=== PATIENT | female | born 1935 | race Caucasian/White ===

== ENCOUNTER → 2016-08-21 | Outpatient (CLI) | payer MEDICARE, OTHER ==
[2016-08-21 09:26] LABS: HEMATOCRIT 42.1 % (36.0-47.0); HGB HCT DIFFERENCE -0.1; MEAN CORPUSCULAR HEMOGLOBIN 32.9 pg (27.0-33.4); MEAN CORPUSCULAR HGB CONC 33.3 g/dL (32.0-36.0); MEAN CORPUSCULAR VOLUME 99 fl (80-97); RED BLOOD COUNT 4.25 10^6/uL (3.72-5.28); RED CELL DISTRIBUTION WIDTH 15.4 % (11.5-14.0); WHITE BLOOD COUNT 11.3 10^3/uL (4.0-10.5)
[2016-08-21 09:33] LABS: APPEARANCE,URINE SLIGHTLY-CLOUDY; BILIRUBIN,URINE NEGATIVE (NEGATIVE); GLUCOSE, URINE NEGATIVE (NEGATIVE); KETONES,URINE NEGATIVE (NEGATIVE); LEUKOCYTE ESTERASE,URINE SMALL (NEGATIVE); NITRITE,URINE NEGATIVE (NEGATIVE); PROTEIN,URINE NEGATIVE (NEGATIVE); URINE SPECIFIC GRAVITY 1.012; UROBILINOGEN,URINE NEGATIVE mg/dL (<2.0)
[2016-08-21 09:52] LABS: ANION GAP 13 (5-19); BLOOD UREA NITROGEN 25 mg/dL (7-20); CALCIUM 9.8 mg/dL (8.4-10.2); CARBON DIOXIDE 23 mmol/L (22-30); CHLORIDE 111 mmol/L (98-107); CREATININE RESULT 1.34 mg/dL (0.52-1.25); GLUCOSE 90 mg/dL (75-110); POTASSIUM 3.7 mmol/L (3.6-5.0); SODIUM 147.4 mmol/L (137-145)
== END ==
LOC: OD 08:20
PROVIDERS: ATTEND Internal Medicine Nephrology
DX: I12.9 Hypertensive chronic kidney disease with stage 1 through stage 4 chronic kidney disease, or unspecified chronic kidney disease (principal); N18.3 Chronic kidney disease, stage 3 (moderate); D64.9 Anemia, unspecified
CPT/HCPCS: 36415; 80048; 81001; 82728; 83540; 83550; 85027

== ENCOUNTER → 2017-02-26 | Outpatient (CLI) | payer MEDICARE, OTHER ==
[2017-02-26 08:06] LABS: HEMOGLOBIN 13.8 g/dL (12.0-15.5); HGB HCT DIFFERENCE 1.4; MEAN CORPUSCULAR HEMOGLOBIN 34.7 pg (27.0-33.4); MEAN CORPUSCULAR HGB CONC 34.5 g/dL (32.0-36.0); MEAN CORPUSCULAR VOLUME 101 fl (80-97); RED BLOOD COUNT 3.98 10^6/uL (3.72-5.28); WHITE BLOOD COUNT 10.7 10^3/uL (4.0-10.5)
[2017-02-26 08:30] LABS: ANION GAP 9 (5-19); BLOOD UREA NITROGEN 22 mg/dL (7-20); CALCIUM 9.7 mg/dL (8.4-10.2); CARBON DIOXIDE 24 mmol/L (22-30); CHLORIDE 113 mmol/L (98-107); CREATININE RESULT 1.32 mg/dL (0.52-1.25); GLUCOSE 101 mg/dL (75-110); POTASSIUM 3.9 mmol/L (3.6-5.0); SODIUM 146.2 mmol/L (137-145)
[2017-02-26 09:15] LABS: APPEARANCE,URINE CLEAR; BILIRUBIN,URINE NEGATIVE (NEGATIVE); GLUCOSE, URINE NEGATIVE (NEGATIVE); KETONES,URINE NEGATIVE (NEGATIVE); LEUKOCYTE ESTERASE,URINE MODERATE (NEGATIVE); NITRITE,URINE NEGATIVE (NEGATIVE); PROTEIN,URINE NEGATIVE (NEGATIVE); URINE SPECIFIC GRAVITY 1.013; UROBILINOGEN,URINE NEGATIVE mg/dL (<2.0)
== END ==
LOC: OD 07:07
PROVIDERS: ATTEND Internal Medicine Nephrology
DX: I12.9 Hypertensive chronic kidney disease with stage 1 through stage 4 chronic kidney disease, or unspecified chronic kidney disease (principal); N18.3 Chronic kidney disease, stage 3 (moderate); E87.1 Hypo-osmolality and hyponatremia
CPT/HCPCS: 36415; 80048; 81001; 85027

== ENCOUNTER → 2017-06-06 | Outpatient (CLI) | payer MEDICARE, OTHER ==
[2017-06-06 16:42] LABS: HEMATOCRIT 41.8 % (36.0-47.0); HEMOGLOBIN 13.8 g/dL (12.0-15.5); MEAN CORPUSCULAR HEMOGLOBIN 33.4 pg (27.0-33.4); MEAN CORPUSCULAR VOLUME 101 fl (80-97); PLATELET COUNT 236 10^3/uL (150-450); RED BLOOD COUNT 4.13 10^6/uL (3.72-5.28); RED CELL DISTRIBUTION WIDTH 14.4 % (11.5-14.0); WHITE BLOOD COUNT 11.9 10^3/uL (4.0-10.5)
[2017-06-06 16:58] LABS: APPEARANCE,URINE SLIGHTLY-CLOUDY; BILIRUBIN,URINE NEGATIVE (NEGATIVE); COLOR,URINE YELLOW; GLUCOSE, URINE NEGATIVE (NEGATIVE); KETONES,URINE NEGATIVE (NEGATIVE); LEUKOCYTE ESTERASE,URINE LARGE (NEGATIVE); NITRITE,URINE NEGATIVE (NEGATIVE); PROTEIN,URINE NEGATIVE (NEGATIVE); URINE SPECIFIC GRAVITY 1.009; UROBILINOGEN,URINE NEGATIVE mg/dL (<2.0)
[2017-06-06 17:04] LABS: ANION GAP 12 (5-19); BLOOD UREA NITROGEN 25 mg/dL (7-20); CALCIUM 10.1 mg/dL (8.4-10.2); CARBON DIOXIDE 24 mmol/L (22-30); CHLORIDE 110 mmol/L (98-107); GLUCOSE 106 mg/dL (75-110); POTASSIUM 4.4 mmol/L (3.6-5.0); SODIUM 146.3 mmol/L (137-145)
== END ==
LOC: OD 15:10
PROVIDERS: ATTEND Physician Assistant Medical
DX: I12.9 Hypertensive chronic kidney disease with stage 1 through stage 4 chronic kidney disease, or unspecified chronic kidney disease (principal); N18.3 Chronic kidney disease, stage 3 (moderate); E87.1 Hypo-osmolality and hyponatremia
CPT/HCPCS: 36415; 80048; 81001; 85027

== ENCOUNTER 2017-07-27 11:30 | Inpatient (IN) | payer MEDICARE, OTHER ==
[2017-07-27] MEDS ORDERED: AZITHROMYCIN INJ 500 MG VIAL IV ONE (11:53)
[2017-07-27] MEDS ORDERED: ALBUTEROL SULFATE 0.083% NEB 2.5 MG/3 ML AMPUL NEB ONE (11:53)
[2017-07-27 12:08] LABS: ABSOLUTE LYMPHOCYTES (AUTO) 1.9 10^3/uL (0.5-4.7); ABSOLUTE MONOCYTES (AUTO) 0.5 10^3/uL (0.1-1.4); ABSOLUTE NEUT (AUTO) 3.4 10^3/uL (1.7-8.2); BASOPHILS % (AUTO) 0.5 % (0-2); EOSINOPHILS % (AUTO) 0.4 % (0-6); HEMATOCRIT 45.2 % (36.0-47.0); LYMPHOCYTES % (AUTO) 32.6 % (13-45); MEAN CORPUSCULAR HEMOGLOBIN 33.4 pg (27.0-33.4); MEAN CORPUSCULAR HGB CONC 33.1 g/dL (32.0-36.0); MEAN CORPUSCULAR VOLUME 101 fl (80-97); PLATELET COUNT 174 10^3/uL (150-450); RED BLOOD COUNT 4.49 10^6/uL (3.72-5.28); SEGMENTED NEUTROPHILS % (AUTO) 57.5 % (42-78); TOTAL CELLS COUNTED % (AUTO) 100 %; WHITE BLOOD COUNT 5.9 10^3/uL (4.0-10.5)
[2017-07-27 12:09] LABS: VENOUS BLOOD HCO3 25.2 mmol/L (20-32); VENOUS BLOOD PH 7.39 (7.30-7.42)
--- NOTE | 2017-07-27 12:27 | RADIOLOGY REPORT (SQ) ---
EXAM DESCRIPTION: CHEST SINGLE VIEW portable COMPLETED DATE/TIME: 07/27/2017 12:11 pm REASON FOR STUDY: copd, fever, weakness COMPARISON: 01/22/2016 EXAM PARAMETERS: NUMBER OF VIEWS: One view. TECHNIQUE: Single frontal radiographic view of the chest acquired. Portable RADIATION DOSE: NA LIMITATIONS: Patient body habitus. FINDINGS: LUNGS AND PLEURA: No opacities, masses or pneumothorax. No pleural effusion. MEDIASTINUM AND HILAR STRUCTURES: No masses. Contour normal. HEART AND VASCULAR STRUCTURES: Heart normal in size. Normal vasculature. BONES: No acute findings. HARDWARE: None in the chest. OTHER: No other significant finding. IMPRESSION: NO ACUTE RADIOGRAPHIC FINDING IN THE CHEST. TECHNICAL DOCUMENTATION: JOB ID: [id number] [place]- All Rights Reserved Reading location - IP/workstation name: [email or web address]
[2017-07-27 12:30] LABS: ALANINE AMINOTRANSFERASE 81 U/L (9-52); ALBUMIN 3.6 g/dL (3.5-5.0); ALKALINE PHOSPHATASE 51 U/L (38-126); ANION GAP 10 (5-19); ASPARTATE AMINO TRANSFERASE 68 U/L (14-36); BILIRUBIN,DIRECT 0.4 mg/dL (0.0-0.4); BILIRUBIN,TOTAL 0.6 mg/dL (0.2-1.3); BLOOD UREA NITROGEN 22 mg/dL (7-20); CALCIUM 9.5 mg/dL (8.4-10.2); CARBON DIOXIDE 26 mmol/L (22-30); CHLORIDE 109 mmol/L (98-107); CREATINE KINASE 46 U/L (30-135); GLUCOSE 91 mg/dL (75-110); POTASSIUM 3.9 mmol/L (3.6-5.0); SODIUM 144.8 mmol/L (137-145); TOTAL PROTEIN 5.9 g/dL (6.3-8.2)
[2017-07-27 12:40] LABS: CREATINE KINASE MB 0.3 ng/mL (<4.55); TROPONIN I 0.03 ng/mL
[2017-07-27 13:46] LABS: APPEARANCE,URINE CLEAR; BILIRUBIN,URINE NEGATIVE (NEGATIVE); COLOR,URINE YELLOW; GLUCOSE, URINE NEGATIVE (NEGATIVE); KETONES,URINE NEGATIVE (NEGATIVE); LEUKOCYTE ESTERASE,URINE NEGATIVE (NEGATIVE); NITRITE,URINE NEGATIVE (NEGATIVE); PROTEIN,URINE NEGATIVE (NEGATIVE); URINE SPECIFIC GRAVITY 1.012; UROBILINOGEN,URINE NEGATIVE mg/dL (<2.0)
[2017-07-27] MEDS ORDERED: CEFTRIAXONE INJ 1000 MG VIAL IV ONE (14:35)
--- NOTE | 2017-07-27 14:43 | ER Document Report ---
ED Respiratory Problem - General Chief Complaint: Fever Stated Complaint: FEVER AND WEAKNESS Time Seen by Provider: 07/27/17 11:45 Mode of Arrival: Medic Information source: Parent Notes: Patient is an 81-year-old female, visually impaired, who presents to the ER today for cough 3 days, weakness, history of COPD. Patient was febrile on the ambulance at 100.5F, they did give her Tylenol. Patient has a history of 2 heart attacks but denies any chest pain. She is not on any blood thinners. She denies any burning with urination or abdominal pain. TRAVEL OUTSIDE OF THE [place] IN LAST 30 DAYS: No - Related Data Allergies/Adverse Reactions: codeine [Codeine] Allergy (Severe, Verified 09/03/15 12:20) rash simvastatin [From Zocor] Allergy (Severe, Verified 09/03/15 12:20) severe rash amoxicillin [Amoxicillin] Adverse Reaction (Severe, Verified 09/03/15 12:20) Diarrhea Past Medical History - General Information source: Patient - Social History Smoking Status: Unknown if Ever Smoked Family History: Reviewed & Not Pertinent - Past Medical History Cardiac Medical History: Reports: Hx Heart Attack - 05/2015, Hx Hypercholesterolemia, Hx Hypertension - MEDICATED Denies: Hx Coronary Artery Disease Pulmonary Medical History: Denies: Hx Asthma, Hx Bronchitis, Hx COPD, Hx Pneumonia, Hx Tuberculosis Neurological Medical History: Denies: Hx Cerebrovascular Accident, Hx Seizures Endocrine Medical History: Reports: Hx Hypothyroidism. 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 Denies: Hx Hysterectomy, Hx Mastectomy, Hx Open Heart Surgery, Hx Pacemaker - Immunizations Hx Diphtheria, Pertussis, Tetanus Vaccination: Yes Hx Pneumococcal Vaccination: 02/25/14 Review of Systems - Review of Systems Constitutional: See HPI EENT: No symptoms reported Cardiovascular: No symptoms reported Respiratory: See HPI Gastrointestinal: No symptoms reported Genitourinary: No symptoms reported Female Genitourinary: No symptoms reported Musculoskeletal: No symptoms reported Skin: No symptoms reported Hematologic/Lymphatic: No symptoms reported Neurological/Psychological: No symptoms reported Physical Exam - Notes Notes: PHYSICAL EXAMINATION: GENERAL: Mildly ill-appearing, but in no acute distress. HEAD: Atraumatic, normocephalic. EYES: Visually impaired, pupils equal round and reactive to light, extraocular movements intact, sclera anicteric, conjunctiva are normal. ENT: ear canals without erythema or foreign body, TMs pearly griffin with good bony landmarks, nares patent, oropharynx clear without exudates. Moist mucous membranes. NECK: Normal range of motion, supple without lymphadenopathy LUNGS: Rhonchi bilateral lower lung yepez, mild expiratory wheezing, no rales HEART: Regular rate and rhythm without murmurs ABDOMEN: Soft, no tenderness. No guarding, no rebound BACK: no vertebral tenderness, normal ROM GI/: no CVA tenderness EXTREMITIES: Normal range of motion, no pitting edema. No cyanosis. NEUROLOGICAL: Cranial nerves grossly intact. Normal sensory/motor exams. PSYCH: Normal mood, normal affect. SKIN: Warm, Dry, normal turgor, no rashes or lesions noted Course - Re-evaluation Re-evalutation: 07/27/17 16:35 Lab work is unremarkable today except for mildly elevated lactic acid, patient has a normal white blood cell count, creatinine and kidney function are at her baseline, chest x-ray reports no acute pathology. Urinalysis negative for any infection. Patient wanted to go home on antibiotics if that is possible, I was in there talking to daughter and patient about this whenever she became unresponsive and her blood pressure plummeted to 78/40 and she started radiating down to the 20s. Patient was found to be pulseless at this time, Dr. Weir did come into the room on my request, compressions were started, but after 3 compressions patient grabbed the nurses hand who is doing the compressions and stopped her. At this time CAT scan of the head was ordered, repeat troponin and VQ scan. VQ scan was ordered over CTA due to patient's creatinine as well as patient saying that she cannot have contrast due to history of a brain tumor and radiation in the . VQ scan reports some filling defects bilaterally and cannot rule out bilateral PEs. Patient started on Lovenox at this time. Dr. Ayoub, hospitalist agrees to admit patient at this time. She is still on 2 L of nasal cannula as she desats to 91% on room air. - Laboratory Result Diagrams: 07/27/17 11:14 07/27/17 11:14 Laboratory results interpreted by me: 07/27/17 07/27/17 07/27/17 11:14 11:14 11:51 MCV 101 H Chloride 109 H BUN 22 H Creatinine 1.74 H Est GFR ( Amer) 34 L Est GFR (Non-Af Amer) 28 L POC Glucose Lactic Acid 2.5 H AST 68 H ALT 81 H Total Protein 5.9 L 07/27/17 14:10 MCV Chloride BUN Creatinine Est GFR ( Amer) Est GFR (Non-Af Amer) POC Glucose 124 H Lactic Acid AST ALT Total Protein Discharge - Discharge Clinical Impression: Hypoxia Pulmonary emboli Qualifiers: Pulmonary embolism type: other Chronicity: acute Acute cor pulmonale presence: without acute cor pulmonale Qualified Code(s): I26.99 - Other pulmonary embolism without acute cor pulmonale Condition: Stable Disposition: ADMITTED INPATIENT Admitting Provider: Hospitalist - ze Unit Admitted: Telemetry Referrals: JANE LOPEZ MD [Primary Care Provider] - Follow up as needed
--- NOTE | 2017-07-27 15:21 | RADIOLOGY REPORT (SQ) ---
EXAM DESCRIPTION: CT HEAD WITHOUT COMPLETED DATE/TIME: 07/27/2017 3:02 pm REASON FOR STUDY: unresponsive COMPARISON: August 2015 TECHNIQUE: Axial images acquired through the brain without intravenous contrast. Images reviewed wi th bone, brain and subdural windows. Images stored on PACS. All CT scanners at this facility use dose modulation, iterative reconstruction, and/or weight based d osing when appropriate to reduce radiation dose to as low as reasonably achievable (ALARA). [facility]: Dose Right [facility]: CareDose [facility]: Dose Right [facility]: Teradose 4D [facility]: [email or web address] RADIATION DOSE: CT Rad equipment meets quality standard of care and radiation dose reduction techniq ues were employed. CTDIvol: 49.0 mGy. DLP: 783 mGy-cm.mGy. LIMITATIONS: None. FINDINGS: VENTRICLES: Prominent. CEREBRUM: No masses. No hemorrhage. No midline shift. Areas of low density in the white matter mos t likely due to chronic micro-vascular ischemic change. No evidence for acute infarction. CEREBELLUM: No masses. No hemorrhage. No alteration of density. No evidence for acute infarction. EXTRAAXIAL SPACES: Age-related involutional change. No fluid collections. No masses. ORBITS AND GLOBE: No intra- or extraconal masses. Normal contour of globe without masses. CALVARIUM: No fracture. PARANASAL SINUSES: No fluid or mucosal thickening. SOFT TISSUES: No mass or hematoma. OTHER: No other significant finding. IMPRESSION: CHRONIC CHANGES OF ATROPHY AND MICROVASCULAR ISCHEMIA. NO ACUTE PROCESS. EVIDENCE OF ACUTE STROKE: NO. TECHNICAL DOCUMENTATION: JOB ID: [id number] Quality ID # [id number]: Final reports with documentation of one or more dose reduction techniques (e.g., Au tomated exposure control, adjustment of the mA and/or kV according to patient size, use of iterative reconstruction technique) 2010 [employer]- All Rights Reserved Reading location - IP/workstation name: [email or web address]
--- NOTE | 2017-07-27 15:49 | RADIOLOGY REPORT (SQ) ---
EXAM DESCRIPTION: NM LUNG PERFUSION SCAN COMPLETED DATE/TIME: 07/27/2017 3:34 pm REASON FOR STUDY: unresponsive for a minute, sob COMPARISON: Chest x-ray dated 07/27/2017 RADIONUCLIDE AND DOSE: 4.96 millicuries TC-99m MAA The route of agent administration: Intravenous TECHNIQUE: Eight views of the lungs acquired following injection of MAA. LIMITATIONS: None. FINDINGS: PERFUSION: There appear to be bilateral posterior perfusion defects best seen in the later al and LPO and RPO projections which I cannot exclude as pulmonary embolic disease. CTA of the chest may be of value for further evaluation. OTHER: No other significant finding. IMPRESSION: There appear to be bilateral posterior perfusion defects as noted above which I cannot e xclude as pulmonary embolic disease. CTA of the chest may be of value for further evaluation TECHNICAL DOCUMENTATION: JOB ID: [id number] [employer]- All Rights Reserved Reading location - IP/workstation name: [email or web address]
[2017-07-27] MEDS ORDERED: ENOXAPARIN SODIUM INJ 80 MG/0.8 ML DISP.SYRIN SUBCUT SCH (16:30)
[2017-07-27] MEDS ORDERED: ONDANSETRON HCL INJ/PF 4 MG/2 ML SDV IV PRN (17:23)
--- NOTE | 2017-07-27 17:41 | PDOC H&P ---
History of Present Illness Admission Date/PCP: 07/27/17 17:26 JANE LOPEZ MD Patient complains of: cough and weakness * 4 days History of Present Illness: SAMEERA SAINZ is a 81 year old female Past Medical History Cardiac Medical History: Reports: Myocardial Infarction - 05/2015, Hyperlipidema , Hypertension - MEDICATED Denies: Coronary Artery Disease Pulmonary Medical History: Denies: Asthma, Bronchitis, Chronic Obstructive Pulmonary Disease (COPD), Pneumonia, Tuberculosis Neurological Medical History: Denies: Seizures Endocrine Medical History: Reports: Hypothyroidism Denies: Diabetes Mellitus Type 2 Malignancy Medical History: Reports: 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, resulting blindness GI Medical History: Denies: Diverticulitis, Hepatitis, Hiatal Hernia Musculoskeltal Medical History: Reports: Gout Comment Only: Arthritis - gout Psychiatric Medical History: Reports: Depression Hematology: Denies: Anemia, Sickle Cell Disease Past Surgical History Past Surgical History: Reports: Appendectomy, Cardiac Catheterization - stents x 2, Cholecystectomy, Orthopedic Surgery - carpal tunnel Denies: Amputation, Hysterectomy, Mastectomy, Pacemaker Social History Information Source: Patient Lives with: Spouse/Significant other Smoking Status: Never Smoker Frequency of Alcohol Use: None Hx Recreational Drug Use: Yes Drugs: None Hx Prescription Drug Abuse: No Family History Family History: Reviewed & Not Pertinent Parental Family History Reviewed: Yes - Mother with cancer Children Family History Reviewed: NA Sibling(s) Family History Reviewed.: NA Medication/Allergy Allergies/Adverse Reactions: codeine [Codeine] Allergy (Severe, Verified 09/03/15 12:20) rash simvastatin [From Zocor] Allergy (Severe, Verified 09/03/15 12:20) severe rash amoxicillin [Amoxicillin] Adverse Reaction (Severe, Verified 09/03/15 12:20) Diarrhea Review of Systems All systems: reviewed and no additional remarkable complaints except as stated Physical Exam General appearance: PRESENT: no acute distress, well-developed, well-nourished Head exam: PRESENT: normocephalic Mouth exam: PRESENT: moist Respiratory exam: PRESENT: decreased breath sounds, unlabored - On 2L NC Cardiovascular exam: PRESENT: RRR. ABSENT: tachycardia GI/Abdominal exam: PRESENT: soft. ABSENT: tenderness Extremities exam: PRESENT: +1 edema - bilateral Neurological exam: PRESENT: alert, awake, CN II-XII grossly intact Psychiatric exam: PRESENT: appropriate affect Results Laboratory Results: 07/27/17 07/27/17 07/27/17 11:14 11:14 11:51 MCV 101 H D-Dimer Chloride 109 H BUN 22 H Creatinine 1.74 H Est GFR ( Amer) 34 L Est GFR (Non-Af Amer) 28 L POC Glucose Lactic Acid 2.5 H AST 68 H ALT 81 H Total Protein 5.9 L 07/27/17 07/27/17 11:51 14:10 MCV D-Dimer 1.24 H Chloride BUN Creatinine Est GFR ( Amer) Est GFR (Non-Af Amer) POC Glucose 124 H Lactic Acid AST ALT Total Protein Troponin: 0.03, repeat 0.025 Repeat Lactate 1.2 Impressions: Chest X-Ray 07/27/17 11:45 IMPRESSION: NO ACUTE RADIOGRAPHIC FINDING IN THE CHEST. Head CT 07/27/17 14:14 IMPRESSION: CHRONIC CHANGES OF ATROPHY AND MICROVASCULAR ISCHEMIA. NO ACUTE PROCESS. EVIDENCE OF ACUTE STROKE: NO. Lung Scan-VQ NM 07/27/17 14:40 IMPRESSION: There appear to be bilateral posterior perfusion defects as noted above which I cannot exclude as pulmonary embolic disease. CTA of the chest may be of value for further evaluation Assessment & Plan - Diagnosis (2) Pulmonary emboli Qualifiers: Pulmonary embolism type: other Chronicity: acute Acute cor pulmonale presence: without acute cor pulmonale Qualified Code(s): I26.99 - Other pulmonary embolism without acute cor pulmonale Plan: Cough, new O2 requirement, intermediate V/Q scan, mildly elevated d. dimer, marginally elevated troponin are all consistent with submassive PE - Risk factors: bed rest * 4 days, no smoking/OCP/recent travel/cancer history/ previous history of VTE - Given CKD, unable to obtain CTA chest to definitively rule in PE - Will obtain b/l lower extremity dopplers to assess for DVT - Will obtain TTE to assess for right heart strain - If still unclear with diagnosis after this work up, discussed with patient risk/benefits of obtaining CTA chest - Will start patient of Heparin GTT, no bolus, given history of easy bruising - Pt is NOT a good Lovenox candidate given CrCl ~30 - Warfarin would be an option however pt has frequent falls and per discussion with daughters would have difficulty with INR checks - DOACs would be an option, would need to discuss with Dr. 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 Ambrocio - Cr 1.7 today, CTM (4) CAD (coronary artery disease) Is this a current diagnosis for this admission?: No Plan: Known CAD history, received stent 2 years ago. Was taken off Plavix 1 year ago due to easy bruisability - Will await med rec to re-start home medications - Time Time Spent: Greater than 70 Minutes Critical Time spent with patient: 15-24 minutes Anticipated discharge: Home with Homehealth Within: within 48 hours
[2017-07-27 18:21] LABS: INTERNATIONAL RATION (INR) 0.94; PROTHROMBIN TIME 13.2 SEC (11.4-15.4)
[2017-07-27 18:22] LABS: PARTIAL THROMBOPLASTIN TIME 25.3 SEC (23.5-35.8)
[2017-07-27 19:39] LABS: ABSOLUTE BASOPHILS # (AUTO) 0.1 10^3/uL (0.0-0.2); ABSOLUTE EOSINOPHILS # (AUTO) 0.1 10^3/uL (0.0-0.6); ABSOLUTE LYMPHOCYTES (AUTO) 2.3 10^3/uL (0.5-4.7); ABSOLUTE MONOCYTES (AUTO) 0.5 10^3/uL (0.1-1.4); ABSOLUTE NEUT (AUTO) 4.4 10^3/uL (1.7-8.2); BASOPHILS % (AUTO) 0.9 % (0-2); EOSINOPHILS % (AUTO) 0.7 % (0-6); HEMATOCRIT 39.8 % (36.0-47.0); HEMOGLOBIN 13.2 g/dL (12.0-15.5); LYMPHOCYTES % (AUTO) 31.4 % (13-45); MEAN CORPUSCULAR HEMOGLOBIN 33.4 pg (27.0-33.4); MEAN CORPUSCULAR VOLUME 101 fl (80-97); MONOCYTES % (AUTO) 6.6 % (3-13); PLATELET COUNT 113 10^3/uL (150-450); RED BLOOD COUNT 3.94 10^6/uL (3.72-5.28); RED CELL DISTRIBUTION WIDTH 14.2 % (11.5-14.0); SEGMENTED NEUTROPHILS % (AUTO) 60.4 % (42-78); TOTAL CELLS COUNTED % (AUTO) 100 %; WHITE BLOOD COUNT 7.3 10^3/uL (4.0-10.5)
[2017-07-27] MEDS: HEPARIN SODIUM,PORCINE/D5W 25,000 UNIT/250 ML RTUINJ IV PRN (20:28)
[2017-07-27] MEDS: IPRATROPIUM/ALBUTEROL 0.5-2.5 MG/3 ML AMPUL NEB SCH (21:00)
--- NOTE | 2017-07-27 21:53 | EKG REPORT ---
SEVERITY:- ABNORMAL ECG - SINUS RHYTHM RIGHT BUNDLE BRANCH BLOCK LATERAL INFARCT, OLD : Confirmed by: Steffen Saenz MD 27-Jul-2017 21:52:47
[2017-07-28 03:35] LABS: INTERNATIONAL RATION (INR) 1.01
[2017-07-28 03:40] LABS: ANION GAP 10 (5-19); BLOOD UREA NITROGEN 16 mg/dL (7-20); CALCIUM 8.7 mg/dL (8.4-10.2); CARBON DIOXIDE 24 mmol/L (22-30); CHLORIDE 112 mmol/L (98-107); GLUCOSE 98 mg/dL (75-110); SODIUM 145.9 mmol/L (137-145)
[2017-07-28] MEDS: IPRATROPIUM/ALBUTEROL 0.5-2.5 MG/3 ML AMPUL NEB SCH ×4 (08:24→20:57)
--- NOTE | 2017-07-28 09:20 | PDOC PROGRESS REPORT ---
Subjective Progress Note for:: 07/28/17 Subjective:: Patient seen sleeping this a.m. She denies any chest pain or any other new symptoms. Reason For Visit: ACUTE PULMNARY EMBOLISM,CKD Physical Exam Vital Signs: Temp Pulse Resp BP Pulse Ox 99.9 F 95 40 H 166/46 H 98 07/28/17 07:07 07/28/17 07:07 07/28/17 07:07 07/28/17 07:07 07/28/17 07:07 Intake & Output 07/27/17 07/28/17 07/29/17 06:59 06:59 06:59 Intake Total 97 Balance 97 Weight 73.9 kg General appearance: PRESENT: no acute distress, other - Sleeping but easily arousable Head exam: PRESENT: atraumatic Eye exam: PRESENT: periorbital swelling, other - Puffy eyes bilaterally with some erythema Mouth exam: PRESENT: neck supple Neck exam: ABSENT: carotid bruit, JVD, lymphadenopathy, thyromegaly Respiratory exam: PRESENT: clear to auscultation susan. ABSENT: rales, rhonchi, wheezes Pulses: PRESENT: normal dorsalis pedis pul GI/Abdominal exam: PRESENT: normal bowel sounds, soft. ABSENT: distended, guarding, mass, organolmegaly, rebound, tenderness Rectal exam: PRESENT: deferred Extremities exam: PRESENT: full ROM. ABSENT: calf tenderness, clubbing, pedal edema Neurological exam: PRESENT: oriented to person, oriented to place, oriented to time Results Laboratory Results: 07/27/17 19:23 07/28/17 03:15 07/27/17 07/28/17 19:23 03:15 WBC 7.3 RBC 3.94 Hgb 13.2 Hct 39.8 MCV 101 H MCH 33.4 MCHC 33.0 RDW 14.2 H Plt Count 113 L Seg Neutrophils % 60.4 Lymphocytes % 31.4 Monocytes % 6.6 Eosinophils % 0.7 Basophils % 0.9 Absolute Neutrophils 4.4 Absolute Lymphocytes 2.3 Absolute Monocytes 0.5 Absolute Eosinophils 0.1 Absolute Basophils 0.1 Sodium 145.9 H Potassium 4.0 Chloride 112 H Carbon Dioxide 24 Anion Gap 10 BUN 16 Creatinine 1.50 H Est GFR ( Amer) 40 L Est GFR (Non-Af Amer) 33 L Glucose 98 Calcium 8.7 Impressions: Chest X-Ray 07/27/17 11:45 IMPRESSION: NO ACUTE RADIOGRAPHIC FINDING IN THE CHEST. Head CT 07/27/17 14:14 IMPRESSION: CHRONIC CHANGES OF ATROPHY AND MICROVASCULAR ISCHEMIA. NO ACUTE PROCESS. EVIDENCE OF ACUTE STROKE: NO. Lung Scan-VQ NM 07/27/17 14:40 IMPRESSION: There appear to be bilateral posterior perfusion defects as noted above which I cannot exclude as pulmonary embolic disease. CTA of the chest may be of value for further evaluation Assessment & Plan - Diagnosis (1) Pulmonary emboli Qualifiers: Pulmonary embolism type: other Chronicity: acute Acute cor pulmonale presence: without acute cor pulmonale Qualified Code(s): I26.99 - Other pulmonary embolism without acute cor pulmonale Is this a current diagnosis for this admission?: Yes Plan: Patient currently on heparin IV. It appears VQ scan was indeterminate and due to a kidney function is CTAs is not feasible. Kidney function however has improved today and if he continues to improve I think we showed go ahead and order a CTA as there will be difficulties on sending this patient on anticoagulant long-term. It appears family says check an INR will be technically difficult and because of a kidney function will have to be careful with using the newer oral anticoagulants. We will will continue with heparin (2) Acute on chronic renal failure Qualifiers: Chronic kidney disease stage: stage 3 (moderate) Is this a current diagnosis for this admission?: Yes Plan: Kidney function has improved somewhat today. We will continue to monitor (3) Hypoxia Is this a current diagnosis for this admission?: Yes Plan: Acute hypoxemic respiratory failure secondary to possible PE will continue oxygen support. (4) CAD (coronary artery disease) Is this a current diagnosis for this admission?: No Plan: Stent placement about 2 years ago and appears patient had been on Plavix but had to be discontinued due to easy bruisability
[2017-07-28] MEDS ORDERED: ACETAMINOPHEN 325 MG TABLET ONE (12:25)
--- NOTE | 2017-07-28 14:12 | RADIOLOGY REPORT (SQ) ---
EXAM DESCRIPTION: VENOUS BILATERAL LOWER COMPLETED DATE/TIME: 07/28/2017 2:01 pm REASON FOR STUDY: sob COMPARISON: None. TECHNIQUE: Dynamic and static richey scale and color images acquired of both lower extremity venous sy stems. Selected spectral images acquired with additional compression and augmentation maneuvers. Imag es stored on PACS. LIMITATIONS: None. FINDINGS: RIGHT LEG COMMON FEMORAL AND FEMORAL: Normal phasicity, compression and augmentation. No visualized echogenic m aterial on richey scale. No defects on color images. POPLITEAL: Normal compression and augmentation. No visualized echogenic material on richey scale. No de fects on color images. CALF VESSELS: Normal compression and augmentation. No visualized echogenic material on richey scale. No defects on color image. GSV AND SSV: Normal compression. No visualized echogenic material on richey scale. No defects on color images. ANY DEEP VENOUS INSUFFICIENCY: Not evaluated. ANY EVIDENCE OF POPLITEAL CYST: No. OTHER: No other significant finding. LEFT LEG COMMON FEMORAL AND FEMORAL: Normal phasicity, compression and augmentation. No visualized echogenic m aterial on richey scale. No defects on color images. POPLITEAL: Normal compression and augmentation. No visualized echogenic material on richey scale. No de fects on color images. CALF VESSELS: Normal compression and augmentation. No visualized echogenic material on richey scale. No defects on color images. GSV AND SSV: Normal compression. No visualized echogenic material on richey scale. No defects on color images. ANY DEEP VENOUS INSUFFICIENCY: Not evaluated. ANY EVIDENCE POPLITEAL CYST: No. OTHER: No other significant finding. IMPRESSION: NO EVIDENCE DVT OR SVT IN EITHER LEG. TECHNICAL DOCUMENTATION: JOB ID: [id number] [employer]- All Rights Reserved Reading location - IP/workstation name: [email or web address]
--- NOTE | 2017-07-28 15:14 | XCELERA REPORT ---
[address] [address] Transthoracic Echocardiogram Report Name: SAMEERA SAINZ Age: 81 yrs Gender: Female : 1935 Patient Status: Inpatient Patient Location: [address] [place] [address] Study Date: 07/28/2017 12:41 PM Height: 65 in Weight: 162 lb BSA: 1.8 m2 Procedure: A complete two-dimensional transthoracic echocardiogram was performed (2D, M-mode, spectral and color flow Doppler). The study was technically difficult with many images being suboptimal in quality. Reason For Study: PE, unresponsive for a minute Ordering Physician: KARINA YAP PA-C Performed By: Claudia Rodriguez Interpretation Summary The left ventricular ejection fraction is normal. There is mild concentric left ventricular hypertrophy. Doppler measurements suggest pseudonormalized left ventricular relaxation, which is associated with grade II/IV or mild to moderate diastolic dysfunction The left ventricle is grossly normal size. Wall motion cannot be accurately commented on, but no definite regional wall motion abnormalities noted. The right ventricular systolic function is normal. The right atrium is normal in size The left atrial size is normal. There is a mild amount of mitral regurgitation There is no mitral valve stenosis. There is mild aortic stenosis There is a peak gradient of 40, mean 20 mm of Hg. There is a mild to moderate amount of aortic regurgitation There is a trace or physiologic amount of tricuspid regurgitation Tricuspid regurgitation jet envelope not well defined to measure RV systolic pressure accurately. The aortic root is not well visualized. The inferior vena cava was not well visualized There is no pericardial effusion. MMode/2D Measurements & Calculations RVDd: 2.8 cm LVIDd: 4.2 cm FS: 30.3 % Ao root diam: 3.0 cm IVSd: 1.2 cm LVIDs: 2.9 cm EDV(Teich): 78.4 ml LVPWd: 1.2 cm ESV(Teich): 32.8 ml Ao root area: 7.0 cm2 EF(Teich): 58.1 % LA dimension: 3.0 cm LVOT diam: 2.0 cm LVOT area: 3.0 cm2 Doppler Measurements & Calculations MV E max sheila: MV P1/2t max sheila: Ao V2 max: AI max sheila: 100.0 cm/sec 101.8 cm/sec 313.8 cm/sec 398.2 cm/sec MV A max sheila: MV P1/2t: 51.2 msec Ao max PG: AI max P.1 cm/sec MVA(P1/2t): 4.3 cm2 39.4 mmHg 63.4 mmHg MV E/A: 0.90 MV dec slope: Ao V2 mean: AI dec slope: 582.9 cm/sec2 199.5 cm/sec 439.5 cm/sec2 Ao mean PG: AI P1/2t: 19.4 mmHg 265.4 msec Ao V2 VTI: 47.1 cm JIN(I,D): 1.6 cm2 JIN(V,D): 1.7 cm2 LV V1 max PG: SV(LVOT): 74.7 ml PA V2 max: TR max sheila: 12.0 mmHg 111.1 cm/sec 225.9 cm/sec LV V1 mean PG: PA max PG: TR max P.1 mmHg 4.9 mmHg 20.4 mmHg LV V1 max: 173.5 cm/sec LV V1 mean: 123.6 cm/sec LV V1 VTI: 24.8 cm Left Ventricle The left ventricle is grossly normal size. There is mild concentric left ventricular hypertrophy. The left ventricular ejection fraction is normal. Doppler measurements suggest pseudonormalized left ventricular relaxation, which is associated with grade II/IV or mild to moderate diastolic dysfunction. Wall motion cannot be accurately commented on, but no definite regional wall motion abnormalities noted. Right Ventricle The right ventricle is grossly normal size. There is normal right ventricular wall thickness. The right ventricular systolic function is normal. Atria The right atrium is normal in size. The left atrial size is normal. Interarterial septum not well visualized and not well dopplered. Cannot comment on ASD/PFO presence. Mitral Valve There is mild mitral leaflet calcification. There is mild to moderate mitral annular calcification. There is no mitral valve stenosis. There is a mild amount of mitral regurgitation. Aortic Valve The aortic valve is moderately calcified. There is mild aortic stenosis. There is a peak gradient of 40, mean 20 mm of Hg. There is a mild to moderate amount of aortic regurgitation. Tricuspid Valve The tricuspid valve is not well visualized secondary to technical limitations. There is no tricuspid stenosis. There is a trace or physiologic amount of tricuspid regurgitation. Tricuspid regurgitation jet envelope not well defined to measure RV systolic pressure accurately. Pulmonic Valve The pulmonic valve is not well visualized. Great Vessels The aortic root is not well visualized. The inferior vena cava was not well visualized. Effusions There is no pericardial effusion. Incidental Findings No definite cardiac source of CVA/TIA noted on this particular trans- thoracic study. Consider EDWAR if clinically indicated. May consider mobile cardiac telemetry monitoring (MCT) for ruling out transient AFIB. : KARINA YAP PA-C > Blayne Mullen
[2017-07-28] MEDS: ACETAMINOPHEN 325 MG TABLET PO PRN (16:21)
[2017-07-28] MEDS: HEPARIN SODIUM,PORCINE/D5W 25,000 UNIT/250 ML RTUINJ IV PRN (18:21)
[2017-07-29 04:07] LABS: PROTHROMBIN TIME 13.9 SEC (11.4-15.4)
[2017-07-29 04:57] LABS: ANION GAP 13 (5-19); BLOOD UREA NITROGEN 13 mg/dL (7-20); CALCIUM 9.3 mg/dL (8.4-10.2); CARBON DIOXIDE 19 mmol/L (22-30); CHLORIDE 115 mmol/L (98-107); GLUCOSE 100 mg/dL (75-110); SODIUM 147.2 mmol/L (137-145)
[2017-07-29] MEDS ORDERED: 1/2 NORMAL SALINE 1,000 ML IV PRN (07:48)
[2017-07-29] MEDS: IPRATROPIUM/ALBUTEROL 0.5-2.5 MG/3 ML AMPUL NEB SCH ×4 (08:45→20:48)
[2017-07-29] MEDS: ACETAMINOPHEN 325 MG TABLET PO PRN ×2 (10:31→15:11)
--- NOTE | 2017-07-29 15:29 | PDOC PROGRESS REPORT ---
Subjective Progress Note for:: 07/29/17 Subjective:: Patient is somewhat lethargic She appears comfortable and in no respiratory distress She is awake Family states "she is not the same" family finds her tremulous And at times obtunded Reason For Visit: ACUTE PULMNARY EMBOLISM,CKD Physical Exam Vital Signs: Temp Pulse Resp BP Pulse Ox 99.3 F 101 H 36 H 132/37 H 94 07/29/17 12:00 07/29/17 12:00 07/29/17 12:00 07/29/17 12:00 07/29/17 12:00 Intake & Output 07/28/17 07/29/17 07/30/17 00:59 00:59 00:59 Intake Total 0 497 75 Balance 0 497 75 Weight 75.4 kg 73.9 kg 72.6 kg eneral appearance: PRESENT: no acute distress, other - Sleeping but easily arousable Head exam: PRESENT: atraumatic Eye exam: PRESENT: periorbital swelling, other -erythema of the sclera no drainage Mouth exam: PRESENT: neck supple Neck exam: ABSENT: carotid bruit, JVD, lymphadenopathy, thyromegaly Respiratory exam: PRESENT: clear to auscultation susan. ABSENT: rales, rhonchi, wheezes Pulses: PRESENT: normal dorsalis pedis pul GI/Abdominal exam: PRESENT: normal bowel sounds, soft. ABSENT: distended, guarding, mass, organolmegaly, rebound, tenderness Rectal exam: PRESENT: deferred Extremities exam: PRESENT: full ROM. ABSENT: calf tenderness, clubbing, pedal edema Neurological exam: PRESENT: oriented to person, oriented to place, oriented to time Results Results Laboratory Results: 07/27/17 19:23 07/29/17 03:43 07/29/17 03:43 Sodium 147.2 H Potassium 4.0 Chloride 115 H Carbon Dioxide 19 L Anion Gap 13 BUN 13 Creatinine 1.53 H Est GFR ( Amer) 39 L Est GFR (Non-Af Amer) 33 L Glucose 100 Calcium 9.3 Impressions: Chest X-Ray 07/27/17 11:45 IMPRESSION: NO ACUTE RADIOGRAPHIC FINDING IN THE CHEST. Head CT 07/27/17 14:14 IMPRESSION: CHRONIC CHANGES OF ATROPHY AND MICROVASCULAR ISCHEMIA. NO ACUTE PROCESS. EVIDENCE OF ACUTE STROKE: NO. Lung Scan-VQ NM 07/27/17 14:40 IMPRESSION: There appear to be bilateral posterior perfusion defects as noted above which I cannot exclude as pulmonary embolic disease. CTA of the chest may be of value for further evaluation Venous Doppler Study 07/28/17 00:00 IMPRESSION: NO EVIDENCE DVT OR SVT IN EITHER LEG. Assessment & Plan - Time Time Spent with patient: 1) Pulmonary emboli Qualifiers: Pulmonary embolism type: other Chronicity: acute Acute cor pulmonale presence: without acute cor pulmonale Qualified Code(s): I26.99 - Other pulmonary embolism without acute cor pulmonale Is this a current diagnosis for this admission?: Yes Plan: Patient currently on heparin IV. It appears VQ scan was indeterminate and due to a kidney function is CTAs is not feasible. Kidney function however has improved today and if he continues to improve I think we showed go ahead and order a CTA as there will be difficulties on sending this patient on anticoagulant long-term. It appears family says check an INR will be technically difficult and because of a kidney function will have to be careful with using the newer oral anticoagulants. We will will continue with heparin Patient likely will require treatment with Coumadin as her creatinine clearance is around 30 Continue heparin drip Continue hydration (2) Acute on chronic renal failure Qualifiers: Chronic kidney disease stage: stage 3 (moderate) Is this a current diagnosis for this admission?: Yes Plan: Kidney function has improved somewhat today. We will continue to monitor Continue hydration (3) Hypoxia Is this a current diagnosis for this admission?: Yes Plan: Acute hypoxemic respiratory failure secondary to possible PE will continue oxygen support. (4) CAD (coronary artery disease) Is this a current diagnosis for this admission?: No Plan: Stent placement about 2 years ago and appears patient had been on Plavix but had to be discontinued due to easy bruisability (5 metabolic encephalopathy) Patient is extremely lethargic Encephalopathy likely secondary to hypoxemia, renal failure and hypernatremia initial CT of the brain was unremarkable We will schedule the patient for an MRI of the brain tomorrow to exclude an acute CVA (6) history of adrenal insufficiency Patient is on hydrocortisone p.o. We will double the dose for stress (7) hypernatremia Change IV fluids to D5 and a half Time Spent with patient: 25-34 minutes
[2017-07-29] MEDS: DEXTROSE 5%-1/2 NORMAL SALINE 1,000 ML IV PRN (16:12)
[2017-07-29] MEDS: METOPROLOL SUCCINATE 50 MG TAB.SR.24H PO SCH (16:12)
[2017-07-29] MEDS ORDERED: METOPROLOL SUCCINATE 50 MG TAB.SR.24H PO SCH (17:00)
[2017-07-29] MEDS: NEO/POLYMYX B SULF/DEXAMETH OPH SUSP 5 ML OU SCH (17:35)
[2017-07-29] MEDS: HYDROCORTISONE 10 MG TABLET PO SCH (17:37)
[2017-07-29] MEDS: FAMOTIDINE 20 MG TABLET PO SCH (17:38)
[2017-07-29] MEDS: MINERAL OIL/PETROLATUM,WHITE OPH OINT 3.5 GM OD SCH (17:40)
[2017-07-29] MEDS: HYDROCORTISONE 1% CREAM 28.35 GM TP SCH (17:41)
[2017-07-29] MEDS ORDERED: HYDROCORTISONE TOP SCH (18:00)
[2017-07-29] MEDS ORDERED: HYDRALAZINE HCL 25 MG TABLET PO SCH (18:00)
[2017-07-29] MEDS ORDERED: (PENDING PHARMACY ID) (Ranitidine Hcl [Zantac 150 Mg Tablet] 150 MG) PO SCH (18:00)
[2017-07-30] MEDS: NEO/POLYMYX B SULF/DEXAMETH OPH SUSP 5 ML OU SCH ×3 (00:09→14:25)
[2017-07-30 00:52] LABS: INTERNATIONAL RATION (INR) 0.98; PROTHROMBIN TIME 13.7 SEC (11.4-15.4)
[2017-07-30] MEDS: LEVOTHYROXINE SODIUM 0.1 MG TABLET PO SCH (06:10)
[2017-07-30] MEDS: LEVOTHYROXINE SODIUM 0.025 MG TABLET PO SCH (06:10)
[2017-07-30] MEDS: DEXTROSE 5%-1/2 NORMAL SALINE 1,000 ML IV PRN (06:18)
[2017-07-30 06:40] LABS: HEMOGLOBIN 12.4 g/dL (12.0-15.5); MEAN CORPUSCULAR HEMOGLOBIN 33.1 pg (27.0-33.4); MEAN CORPUSCULAR HGB CONC 33.4 g/dL (32.0-36.0); MEAN CORPUSCULAR VOLUME 99 fl (80-97); PLATELET COUNT 171 10^3/uL (150-450); RED BLOOD COUNT 3.73 10^6/uL (3.72-5.28); RED CELL DISTRIBUTION WIDTH 14.1 % (11.5-14.0); WHITE BLOOD COUNT 5.7 10^3/uL (4.0-10.5)
[2017-07-30 06:50] LABS: ANION GAP 7 (5-19); BLOOD UREA NITROGEN 9 mg/dL (7-20); CALCIUM 8.4 mg/dL (8.4-10.2); CARBON DIOXIDE 23 mmol/L (22-30); CHLORIDE 112 mmol/L (98-107); GLUCOSE 109 mg/dL (75-110); POTASSIUM 4.3 mmol/L (3.6-5.0); SODIUM 141.6 mmol/L (137-145)
[2017-07-30] MEDS ORDERED: (PENDING PHARMACY ID) (Levothyroxine Sodium [Synthroid] 125 MCG) PO SCH (08:00)
[2017-07-30] MEDS: IPRATROPIUM/ALBUTEROL 0.5-2.5 MG/3 ML AMPUL NEB SCH ×4 (08:20→21:09)
[2017-07-30 08:45] LABS: APPEARANCE,URINE CLEAR; BILIRUBIN,URINE NEGATIVE (NEGATIVE); COLOR,URINE YELLOW; GLUCOSE, URINE NEGATIVE (NEGATIVE); KETONES,URINE NEGATIVE (NEGATIVE); LEUKOCYTE ESTERASE,URINE NEGATIVE (NEGATIVE); NITRITE,URINE NEGATIVE (NEGATIVE); PROTEIN,URINE NEGATIVE (NEGATIVE); URINE SPECIFIC GRAVITY 1.008; UROBILINOGEN,URINE NEGATIVE mg/dL (<2.0)
[2017-07-30] MEDS: FOLIC ACID/VITAMIN B COMP W-C CAPSULE PO SCH (09:24)
[2017-07-30] MEDS: ALLOPURINOL 100 MG TABLET PO SCH (09:24)
[2017-07-30] MEDS: CARBOXYMETHYLCELLULOSE SOD 0.5% 0.4 ML DROPERETTE OU SCH (09:25)
[2017-07-30] MEDS: MINERAL OIL/PETROLATUM,WHITE OPH OINT 3.5 GM OD SCH ×2 (09:25→17:40)
[2017-07-30] MEDS: HYDROCORTISONE 10 MG TABLET PO SCH ×2 (09:25→17:36)
[2017-07-30] MEDS: HYDROCORTISONE 1% CREAM 28.35 GM TP SCH ×2 (09:25→17:40)
[2017-07-30] MEDS ORDERED: GLY OU SCH (10:00)
[2017-07-30] MEDS ORDERED: CARBOXYMETHYL OU SCH (10:00)
[2017-07-30] MEDS ORDERED: POLY80 OU SCH (10:00)
[2017-07-30] MEDS ORDERED: [UNRECOGNIZED DRUG - OTHER] OU SCH (10:00)
--- NOTE | 2017-07-30 11:44 | RADIOLOGY REPORT (SQ) ---
EXAM DESCRIPTION: CTA CHEST COMPLETED DATE/TIME: 07/30/2017 11:17 am REASON FOR STUDY: PE COMPARISON: Chest x-ray dated 07/27/2017 and CTA of the chest dated August 2015 TECHNIQUE: CT scan of the chest performed using helical scanning technique with dynamic intravenous contrast injection. Images reviewed with lung, soft tissue and bone windows. Reconstructed coronal and sagittal MPR images reviewed. Additional 3 dimensional post-processing performed to develop Maximal Intensity Projection images (CT P). All images stored on PACS. All CT scanners at this facility use dose modulation, iterative reconstruction, and/or weight based d osing when appropriate to reduce radiation dose to as low as reasonably achievable (ALARA). [facility]: Dose Right [facility]: CareDose [facility]: Dose Right [facility]: Teradose 4D [facility]: [employer] CONTRAST TYPE AND DOSE: contrast/concentration: Isovue 370.00 mg/ml; Total Contrast Delivered: 63.0 ml; Total Saline Delivered: 108.0 ml Contrast bolus optimized for the pulmonary arteries. Not diagnostic for the aorta. RENAL FUNCTION: Creatinine 1.2 RADIATION DOSE: CT Rad equipment meets quality standard of care and radiation dose reduction techniq ues were employed. CTDIvol: 9.4 - 13.8 mGy. DLP: 482 mGy-cm. . LIMITATIONS: None. FINDINGS: LUNGS AND PLEURA: No masses, infiltrates, pneumothorax. No pleural effusions. There is s ome minimal pleural thickening in the lung bases with a few tiny pleural calcifications. AORTA AND GREAT VESSELS: No aneurysm. Contrast bolus not optimized for the aorta. HEART: No pericardial effusion. No significant coronary artery calcifications. PULMONARY ARTERIES: No emboli visualized in the main pulmonary arteries or the segmental branches. HILAR AND MEDIASTINAL STRUCTURES: No identified masses or abnormal nodes. HARDWARE: None in the chest. UPPER ABDOMEN: No significant findings. Limited exam. THYROID AND OTHER SOFT TISSUES: No masses. No adenopathy. BONES: No acute or significant finding. 3D MIPS: Confirm above findings. OTHER: No other significant finding. IMPRESSION: No acute consolidations or pleural effusions. No evidence for pulmonary embolic disease . Other findings as noted above COMMENT: Quality ID # [id number]: Final reports with documentation of one or more dose reduction techniques (e.g., Automated exposure control, adjustment of the mA and/or kV according to patient size, use of iterative reconstruction technique) TECHNICAL DOCUMENTATION: JOB ID: [id number] [employer]- All Rights Reserved Reading location - IP/workstation name: [email or web address]
[2017-07-30] MEDS: HEPARIN SODIUM,PORCINE/D5W 25,000 UNIT/250 ML RTUINJ IV PRN (14:16)
--- NOTE | 2017-07-30 16:22 | PDOC PROGRESS REPORT ---
Subjective Progress Note for:: 07/30/17 Subjective:: Patient is an 81-year-old admitted on 07/27/2017 with weakness and cough. She was initially started on anticoagulation with IV heparin for concern for PE. CTA chest done this morning negative for acute PE. Seen and examined this afternoon and her daughter present during lunchtime, patient was seen feeding myself. Per daughter, she is not herself and the tremor is all new. She had pituitary surgery and awaiting for confirmation and medical records before MRI brain. Reason For Visit: ACUTE PULMNARY EMBOLISM,CKD Physical Exam Vital Signs: Temp Pulse Resp BP Pulse Ox 98.7 F 81 16 136/46 H 100 07/30/17 11:34 07/30/17 11:34 07/30/17 11:34 07/30/17 11:34 07/30/17 11:34 Intake & Output 07/29/17 07/30/17 07/31/17 06:59 06:59 06:59 Intake Total 475 1864 Balance 475 1864 Weight 72.6 kg 73.2 kg General appearance: PRESENT: other - Frail elderly woman Head exam: PRESENT: atraumatic, normocephalic Eye exam: PRESENT: conjunctiva pink Mouth exam: PRESENT: moist, neck supple Respiratory exam: PRESENT: clear to auscultation susan. ABSENT: accessory muscle use Cardiovascular exam: PRESENT: RRR GI/Abdominal exam: PRESENT: normal bowel sounds, soft Rectal exam: PRESENT: deferred Neurological exam: PRESENT: alert, altered, awake, oriented to situation Psychiatric exam: PRESENT: appropriate affect Skin exam: PRESENT: dry, warm Results Laboratory Results: 07/30/17 06:11 07/30/17 06:11 07/30/17 07/30/17 07/30/17 06:11 06:11 07:45 WBC 5.7 RBC 3.73 Hgb 12.4 Hct 37.0 MCV 99 H MCH 33.1 MCHC 33.4 RDW 14.1 H Plt Count 171 Sodium 141.6 Potassium 4.3 Chloride 112 H Carbon Dioxide 23 Anion Gap 7 BUN 9 Creatinine 1.20 Est GFR ( Amer) 52 L Est GFR (Non-Af Amer) 43 L Glucose 109 Calcium 8.4 Magnesium 1.7 Urine Color YELLOW Urine Appearance CLEAR Urine pH 6.0 Ur Specific [place] 1.008 Urine Protein NEGATIVE Urine Glucose (UA) NEGATIVE Urine Ketones NEGATIVE Urine Blood NEGATIVE Urine Nitrite NEGATIVE Ur Leukocyte Esterase NEGATIVE Urine WBC (Auto) 1 Urine RBC (Auto) 1 Impressions: Chest X-Ray 07/27/17 11:45 IMPRESSION: NO ACUTE RADIOGRAPHIC FINDING IN THE CHEST. Head CT 07/27/17 14:14 IMPRESSION: CHRONIC CHANGES OF ATROPHY AND MICROVASCULAR ISCHEMIA. NO ACUTE PROCESS. EVIDENCE OF ACUTE STROKE: NO. Lung Scan-VQ NM 07/27/17 14:40 IMPRESSION: There appear to be bilateral posterior perfusion defects as noted above which I cannot exclude as pulmonary embolic disease. CTA of the chest may be of value for further evaluation Venous Doppler Study 07/28/17 00:00 IMPRESSION: NO EVIDENCE DVT OR SVT IN EITHER LEG. Chest/Abdomen CTA 07/30/17 00:00 IMPRESSION: No acute consolidations or pleural effusions. No evidence for pulmonary embolic disease. Other findings as noted above Assessment & Plan - Diagnosis (1) Acute on chronic renal failure Qualifiers: Chronic kidney disease stage: stage 3 (moderate) Is this a current diagnosis for this admission?: Yes Plan: Resolved (2) Acute metabolic encephalopathy Is this a current diagnosis for this admission?: Yes Plan: On presentation she did have a CT head without acute findings. She was awake during my round and seen feeding resolved. She answers some of my question appropriately. Per the daughter she is not back to herself and she is tremulous. MRI brain has been ordered. If unable to obtain we may need to repeat the CAT scan of the brain (3) Hypoxia Is this a current diagnosis for this admission?: Yes Plan: CTA chest negative for PE no evidence of infiltrate and no pleural effusions. May be due to deconditioning. Continue bronchodilator therapy Consult physical therapy (4) CAD (coronary artery disease) Is this a current diagnosis for this admission?: No Plan: Continue current management (5) Hypernatremia Is this a current diagnosis for this admission?: Yes Plan: Resolved (6) Physical deconditioning Is this a current diagnosis for this admission?: Yes Plan: Consult physical therapy (7) DVT prophylaxis Is this a current diagnosis for this admission?: Yes Plan: Start Lovenox
[2017-07-30] MEDS ORDERED: TOBRAMYCIN SULFATE/DEXAMETH OPH SUSP 2.5 ML OU SCH (16:30)
[2017-07-30] MEDS: METOPROLOL SUCCINATE 50 MG TAB.SR.24H PO SCH (17:29)
[2017-07-30] MEDS: FAMOTIDINE 20 MG TABLET PO SCH (17:36)
[2017-07-30] MEDS: TOBRAMYCIN SULFATE/DEXAMETH OPH SUSP 2.5 ML OU SCH (20:54)
--- NOTE | 2017-07-30 22:11 | RADIOLOGY REPORT (SQ) ---
EXAM DESCRIPTION: CT HEAD WITHOUT COMPLETED DATE/TIME: 07/30/2017 10:00 pm REASON FOR STUDY: ? CVA COMPARISON: 07/27/2017 TECHNIQUE: Axial images acquired through the brain without intravenous contrast. Images reviewed wi th bone, brain and subdural windows. Images stored on PACS. All CT scanners at this facility use dose modulation, iterative reconstruction, and/or weight based d osing when appropriate to reduce radiation dose to as low as reasonably achievable (ALARA). [facility]: Dose Right [facility]: CareDose [facility]: Dose Right [facility]: Teradose 4D [facility]: [employer] RADIATION DOSE: 64.6mGy. LIMITATIONS: Pain [facility] FINDINGS: VENTRICLES: Prominent ventricles secondary to involutional atrophy. CEREBRUM: No masses. No hemorrhage. No midline shift. No evidence for acute infarction. Few scatte red areas of low density in the white matter most likely chronic small vessel ischemic changes. CEREBELLUM: No masses. No hemorrhage. No alteration of density. No evidence for acute infarction. EXTRAAXIAL SPACES: No fluid collections. No masses. ORBITS AND GLOBE: No intra- or extraconal masses. Normal contour of globe without masses. CALVARIUM: No fracture. PARANASAL SINUSES: No fluid or mucosal thickening. SOFT TISSUES: No mass or hematoma. OTHER: No other significant finding. IMPRESSION: MILD CHRONIC MICROVASCULAR ISCHEMIA. NO ACUTE IMAGING FINDINGS IN THE BRAIN. EVIDENCE OF ACUTE STROKE: NO. COMMENT: Quality ID # [id number]: Final reports with documentation of one or more dose reduction techniques (e.g., Automated exposure control, adjustment of the mA and/or kV according to patient size, use of iterative reconstruction technique) TECHNICAL DOCUMENTATION: JOB ID: [id number] [employer]- All Rights Reserved Reading location - IP/workstation name: [email or web address]
[2017-07-31 00:42] LABS: INTERNATIONAL RATION (INR) 0.87; PROTHROMBIN TIME 12.5 SEC (11.4-15.4)
[2017-07-31] MEDS: LEVOTHYROXINE SODIUM 0.1 MG TABLET PO SCH (06:35)
[2017-07-31] MEDS: TOBRAMYCIN SULFATE/DEXAMETH OPH SUSP 2.5 ML OU SCH ×4 (06:35→17:21)
[2017-07-31] MEDS: LEVOTHYROXINE SODIUM 0.025 MG TABLET PO SCH (06:35)
[2017-07-31] MEDS: IPRATROPIUM/ALBUTEROL 0.5-2.5 MG/3 ML AMPUL NEB SCH ×4 (08:01→20:19)
[2017-07-31] MEDS: CARBOXYMETHYLCELLULOSE SOD 0.5% 0.4 ML DROPERETTE OU SCH (10:00)
[2017-07-31] MEDS: HYDROCORTISONE 10 MG TABLET PO SCH ×2 (10:55→17:19)
[2017-07-31] MEDS: FOLIC ACID/VITAMIN B COMP W-C CAPSULE PO SCH (10:55)
[2017-07-31] MEDS: ALLOPURINOL 100 MG TABLET PO SCH (10:55)
[2017-07-31] MEDS: MINERAL OIL/PETROLATUM,WHITE OPH OINT 3.5 GM OD SCH ×2 (10:57→17:21)
[2017-07-31] MEDS: HYDROCORTISONE 1% CREAM 28.35 GM TP SCH ×2 (10:59→17:20)
[2017-07-31] MEDS: BENZOCAINE/MENTHOL SORE THROAT LOZENGE BUCCAL PRN ×2 (13:22→17:20)
--- NOTE | 2017-07-31 16:03 | PDOC PROGRESS REPORT ---
Subjective Progress Note for:: 07/31/17 Subjective:: Patient is an 81-year-old admitted on 07/27/2017 with weakness and cough. She was initially started on anticoagulation with IV heparin for concern for PE. CTA chest done on 07/30/2017 negative for acute PE, heparin drip has been discontinued. She did have a repeat CAT scan of the brain yesterday negative for acute CVA. The daughter thinks that her tremor much improved. Patient reports doing better and reports sore throat. Reason For Visit: ACUTE PULMNARY EMBOLISM,CKD Physical Exam Vital Signs: Temp Pulse Resp BP Pulse Ox 98.1 F 83 18 133/43 H 99 07/31/17 12:00 07/31/17 12:50 07/31/17 12:50 07/31/17 12:00 07/31/17 12:00 Intake & Output 07/30/17 07/31/17 08/01/17 06:59 06:59 06:59 Intake Total 1864 3909 200 Balance 1864 3909 200 Weight 73.2 kg 74.1 kg General appearance: PRESENT: no acute distress, other - frail elderly woman Head exam: PRESENT: atraumatic, normocephalic Eye exam: PRESENT: conjunctiva pink, EOMI Mouth exam: PRESENT: dry mucosa Neck exam: PRESENT: full ROM Respiratory exam: PRESENT: clear to auscultation susan, unlabored. ABSENT: accessory muscle use Cardiovascular exam: PRESENT: RRR GI/Abdominal exam: PRESENT: normal bowel sounds, soft Rectal exam: PRESENT: deferred Extremities exam: PRESENT: full ROM Neurological exam: PRESENT: alert, oriented to person, oriented to time, oriented to situation Psychiatric exam: PRESENT: appropriate affect Results Laboratory Results: 07/30/17 06:11 07/30/17 06:11 07/30/17 07/31/17 16:20 11:10 Stool Occult Blood POSITIVE NEGATIVE Impressions: Chest X-Ray 07/27/17 11:45 IMPRESSION: NO ACUTE RADIOGRAPHIC FINDING IN THE CHEST. Lung Scan-VQ NM 07/27/17 14:40 IMPRESSION: There appear to be bilateral posterior perfusion defects as noted above which I cannot exclude as pulmonary embolic disease. CTA of the chest may be of value for further evaluation Venous Doppler Study 07/28/17 00:00 IMPRESSION: NO EVIDENCE DVT OR SVT IN EITHER LEG. Chest/Abdomen CTA 07/30/17 00:00 IMPRESSION: No acute consolidations or pleural effusions. No evidence for pulmonary embolic disease. Other findings as noted above Head CT 07/30/17 00:00 IMPRESSION: MILD CHRONIC MICROVASCULAR ISCHEMIA. NO ACUTE IMAGING FINDINGS IN THE BRAIN. EVIDENCE OF ACUTE STROKE: NO. Assessment & Plan - Diagnosis (1) Conjunctivitis Qualifiers: Acute conjunctivitis type: bacterial Laterality: bilateral Is this a current diagnosis for this admission?: Yes Plan: Continue tobramycin eye drops (2) Acute on chronic renal failure Qualifiers: Chronic kidney disease stage: stage 3 (moderate) Is this a current diagnosis for this admission?: Yes Plan: Resolved (3) Acute metabolic encephalopathy Is this a current diagnosis for this admission?: Yes Plan: She did have a repeat CAT scan of the brain yesterday negative for acute CVA. The daughter thinks that her tremor much improved. (4) Hypoxia Is this a current diagnosis for this admission?: Yes Plan: CTA chest negative for PE no evidence of infiltrate and no pleural effusions. May be due to deconditioning. Continue bronchodilator therapy Consulted physical therapy Plan to wean off O2 as tolerated (5) CAD (coronary artery disease) Is this a current diagnosis for this admission?: No Plan: Continue current management (6) Hypernatremia Is this a current diagnosis for this admission?: Yes Plan: Resolved (7) Physical deconditioning Is this a current diagnosis for this admission?: Yes Plan: Consulted physical therapy (8) DVT prophylaxis Is this a current diagnosis for this admission?: Yes Plan: SCD's
[2017-07-31] MEDS: METOPROLOL SUCCINATE 50 MG TAB.SR.24H PO SCH (17:19)
[2017-07-31] MEDS: FAMOTIDINE 20 MG TABLET PO SCH (17:20)
[2017-08-01 00:48] LABS: INTERNATIONAL RATION (INR) 0.86; PROTHROMBIN TIME 12.4 SEC (11.4-15.4)
[2017-08-01] MEDS: LEVOTHYROXINE SODIUM 0.1 MG TABLET PO SCH (06:19)
[2017-08-01] MEDS: LEVOTHYROXINE SODIUM 0.025 MG TABLET PO SCH (06:19)
[2017-08-01] MEDS: TOBRAMYCIN SULFATE/DEXAMETH OPH SUSP 2.5 ML OU SCH ×3 (06:20→12:55)
[2017-08-01 07:10] LABS: HEMATOCRIT 36.3 % (36.0-47.0); HEMOGLOBIN 12.3 g/dL (12.0-15.5); MEAN CORPUSCULAR HEMOGLOBIN 33.4 pg (27.0-33.4); MEAN CORPUSCULAR HGB CONC 33.8 g/dL (32.0-36.0); MEAN CORPUSCULAR VOLUME 99 fl (80-97); PLATELET COUNT 211 10^3/uL (150-450); RED BLOOD COUNT 3.67 10^6/uL (3.72-5.28); WHITE BLOOD COUNT 9.3 10^3/uL (4.0-10.5)
[2017-08-01] MEDS: FOLIC ACID/VITAMIN B COMP W-C CAPSULE PO SCH (08:38)
[2017-08-01] MEDS: ALLOPURINOL 100 MG TABLET PO SCH (08:38)
[2017-08-01] MEDS: HYDROCORTISONE 10 MG TABLET PO SCH (08:38)
[2017-08-01] MEDS: IPRATROPIUM/ALBUTEROL 0.5-2.5 MG/3 ML AMPUL NEB SCH ×2 (08:39→12:09)
[2017-08-01] MEDS: MINERAL OIL/PETROLATUM,WHITE OPH OINT 3.5 GM OD SCH (09:55)
[2017-08-01] MEDS: HYDROCORTISONE 1% CREAM 28.35 GM TP SCH (09:55)
[2017-08-01] MEDS: BENZOCAINE/MENTHOL SORE THROAT LOZENGE BUCCAL PRN (09:57)
[2017-08-01] MEDS: CARBOXYMETHYLCELLULOSE SOD 0.5% 0.4 ML DROPERETTE OU SCH (10:00)
--- NOTE | 2017-08-01 11:54 | PDOC DISCHARGE SUMMARY ---
General - Admit/Disc Date/PCP Admission Date/Primary Care Provider: 07/27/17 17:26 JANE LOPEZ MD Discharge Date: 08/01/17 - Discharge Diagnosis (1) Conjunctivitis Is this a current diagnosis for this admission?: Yes (2) Acute on chronic renal failure Is this a current diagnosis for this admission?: Yes (3) Acute metabolic encephalopathy Is this a current diagnosis for this admission?: Yes (4) Hypoxia Is this a current diagnosis for this admission?: Yes (5) CAD (coronary artery disease) Is this a current diagnosis for this admission?: No (6) Hypernatremia Is this a current diagnosis for this admission?: Yes (7) Physical deconditioning Is this a current diagnosis for this admission?: Yes (8) DVT prophylaxis Is this a current diagnosis for this admission?: Yes - Additional Information Resuscitation Status: Full Code Prescriptions: Tobramycin Sulfate/Dexameth [Tobradex Oph Drops 2.5 ml] 1 drop OU Q6 5 Days #1 bottle Home Medications: Allopurinol [Zyloprim 100 mg Tablet] 100 mg PO QAM 07/27/17 Aspirin [Adult Low Dose Aspirin EC] 81 mg PO QAM 07/27/17 Atorvastatin Calcium [Lipitor 80 mg Tablet] 80 mg PO QHS 07/27/17 B Complex W-C No.20/Folic Acid [Renal Caps Softgel] 1 mg PO QAM 07/27/17 Carboxymethyl/Gly/Poly80/Pf [Refresh Optive Advanced Drops] 4 drop OU DAILY 07/15 Furosemide [Lasix 20 mg Tablet] 20 mg PO QAM 07/27/17 Gabapentin [Neurontin] 600 mg PO QHS 07/27/17 Hydralazine HCl [Apresoline 25 mg Tablet] 25 mg PO BID 07/27/17 Hydrocortisone [Cortef 10 mg Tablet] 10 mg PO QPM 07/27/17 Hydrocortisone [Cortef 10 mg Tablet] 20 mg PO QAM 07/27/17 Hydrocortisone [Cortizone-10] 1 applic TOP BID 07/27/17 Levothyroxine Sodium [Synthroid] 125 mcg PO QAM 07/27/17 Hermilo/Polymyx B Sulf/Dexameth [Uopesk-Rfuae-Ccviqyie Eye Drop] 1 drop OU QID 07/27 Nitroglycerin [Nitrostat] 0.4 mg SL Q5MP PRN 07/27/17 Ranitidine HCl [Zantac 150 mg Tablet] 150 mg PO BID 07/27/17 Telmisartan [Micardis 80 mg Tablet] 80 mg PO QAM 07/27/17 Metoprolol Succinate [Toprol Xl 50 mg Tab.sr] 25 mg PO WSUPPER tab.sr.24h 08/01 Tobramycin Sulfate/Dexameth [Tobradex Oph Drops 2.5 ml] 1 drop OU Q6 5 Days #1 bottle 08/01/17 History of Present Illness History of Present Illness: Initially presented with cough and generalized weakness on 07/29/2017. 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 There was no report of chest pain. She had evidence of acute on chronic kidney disease. So therefore she was not able to get a CTA chest, she did have a long VQ scan with a perfusion defect, she was started on heparin drip empirically. Her kidney function improved and was able to obtain a CTA chest negative for PE and no evidence of opacity. She did have a CAT scan of her head negative for acute stroke. Her daughter insisted that the mother was not herself and had a repeat CAT scan negative for acute finding. She was seen and evaluated by physical therapy and recommended that she is discharged with home PT. she was started this admission on ophthalmic antibiotic drops for conjunctivitis with respone. Seen and examined this morning and reports feeling much better. Therefore she was discharged home with family with PT. Physical Exam Vital Signs: Temp Pulse Resp BP Pulse Ox 98.0 F 85 16 172/61 H 96 08/01/17 07:53 08/01/17 08:39 08/01/17 08:39 08/01/17 07:53 08/01/17 08:39 Intake & Output 07/31/17 08/01/17 08/02/17 06:59 06:59 06:59 Intake Total 3909 735 Balance 3909 735 Weight 74.1 kg 73.5 kg General appearance: PRESENT: no acute distress, other - frail elderly woman Head exam: PRESENT: atraumatic, normocephalic Eye exam: PRESENT: conjunctiva pink, EOMI Mouth exam: PRESENT: moist, neck supple Neck exam: PRESENT: full ROM Respiratory exam: PRESENT: clear to auscultation susan, unlabored Cardiovascular exam: PRESENT: RRR GI/Abdominal exam: PRESENT: normal bowel sounds, soft Rectal exam: PRESENT: deferred Extremities exam: PRESENT: full ROM. ABSENT: pedal edema Musculoskeletal exam: PRESENT: full ROM Neurological exam: PRESENT: alert, oriented to person, oriented to time, oriented to situation Psychiatric exam: PRESENT: appropriate affect Skin exam: PRESENT: dry, warm Results Laboratory Results: 08/01/17 06:35 07/30/17 06:11 08/01/17 06:35 WBC 9.3 RBC 3.67 L Hgb 12.3 Hct 36.3 MCV 99 H MCH 33.4 MCHC 33.8 RDW 14.0 Plt Count 211 Impressions: Chest X-Ray 07/27/17 11:45 IMPRESSION: NO ACUTE RADIOGRAPHIC FINDING IN THE CHEST. Lung Scan-VQ NM 07/27/17 14:40 IMPRESSION: There appear to be bilateral posterior perfusion defects as noted above which I cannot exclude as pulmonary embolic disease. CTA of the chest may be of value for further evaluation Venous Doppler Study 07/28/17 00:00 IMPRESSION: NO EVIDENCE DVT OR SVT IN EITHER LEG. Chest/Abdomen CTA 07/30/17 00:00 IMPRESSION: No acute consolidations or pleural effusions. No evidence for pulmonary embolic disease. Other findings as noted above Head CT 07/30/17 00:00 IMPRESSION: MILD CHRONIC MICROVASCULAR ISCHEMIA. NO ACUTE IMAGING FINDINGS IN THE BRAIN. EVIDENCE OF ACUTE STROKE: NO. Qualifiers - * PATEINT BEING DISCHARGED WITH ANY OF THE FOLLOWING DIAGNOSIS?: No VTE patient discharged on overlapping Therapy?: Yes Plan Time Spent: Greater than 30 Minutes
[2017-08-01 12:45] VITALS: BP 151/63
[2017-08-01] MEDS ORDERED: METOPROLOL TARTRATE 25 MG TABLET PO ONE (13:00)
== END 2017-08-01 14:26 | disposition home health service (06) | DRG 175 ==
LOC: ER 11:30 → EH 17:26 → 3W 21:25 → 3S 07-28 17:44
PROVIDERS: ADMIT Internal Medicine; ATTEND Internal Medicine
PROC: 3E0F73Z Introduction of Anti-inflammatory into Respiratory Tract, Via Natural or Artificial Opening (ICD-10-PCS; principal; 2017-07-27)
DX: I26.99 Other pulmonary embolism without acute cor pulmonale (principal); G93.41 Metabolic encephalopathy; N17.9 Acute kidney failure, unspecified; E87.0 Hyperosmolality and hypernatremia; H54.8 Legal blindness, as defined in USA; N18.3 Chronic kidney disease, stage 3 (moderate); R09.02 Hypoxemia; I12.9 Hypertensive chronic kidney disease with stage 1 through stage 4 chronic kidney disease, or unspecified chronic kidney disease; I25.10 Atherosclerotic heart disease of native coronary artery without angina pectoris; E78.00 Pure hypercholesterolemia, unspecified; E03.9 Hypothyroidism, unspecified; M10.9 Gout, unspecified; H10.33 Unspecified acute conjunctivitis, bilateral; F32.9 Major depressive disorder, single episode, unspecified; I25.2 Old myocardial infarction; Z79.82 Long term (current) use of aspirin; Z79.899 Other long term (current) drug therapy; Z92.3 Personal history of irradiation; Z86.11 Personal history of tuberculosis; Z85.841 Personal history of malignant neoplasm of brain; Z95.5 Presence of coronary angioplasty implant and graft; Z90.49 Acquired absence of other specified parts of digestive tract; Z88.6 Allergy status to analgesic agent; Z88.1 Allergy status to other antibiotic agents; Z88.8 Allergy status to other drugs, medicaments and biological substances; Z80.9 Family history of malignant neoplasm, unspecified
CPT/HCPCS: 36415; 51701; 70450; 71045; 71275; 78580; 80048; 80053; 81001; 82272; 82550; 82553; 82803; 82962; 83605; 83735; 84484; 85025; 85027; 85379; 85610; 85730; 87040; 92950; 93005; 93010; 93306; 93970; 94640; 96365; 96367; 99285; A9540; G8978-GP; G8979-GP; J0456; J0696; J1644; J3490; J7620; Q9969

== ENCOUNTER 2017-10-08 11:43 | Emergency (ER) | payer MEDICARE, OTHER ==
--- NOTE | 2017-10-08 12:56 | ER Document Report ---
ED General - General Chief Complaint: Pain Stated Complaint: FALL/LEG PAIN Time Seen by Provider: 10/08/17 12:13 TRAVEL OUTSIDE OF THE [place] IN LAST 30 DAYS: No - Related Data Allergies/Adverse Reactions: codeine [Codeine] Allergy (Severe, Verified 09/03/15 12:20) rash simvastatin [From Zocor] Allergy (Severe, Verified 09/03/15 12:20) severe rash amoxicillin [Amoxicillin] Adverse Reaction (Severe, Verified 09/03/15 12:20) Diarrhea Past Medical History - Social History Smoking Status: Never Smoker Chew tobacco use (# tins/day): No Frequency of alcohol use: None Family History: Reviewed & Not Pertinent Patient has suicidal ideation: No Patient has homicidal ideation: No - Past Medical History Cardiac Medical History: Reports: Hx Heart Attack - 05/2015, Hx Hypercholesterolemia, Hx Hypertension Denies: Hx Coronary Artery Disease Pulmonary Medical History: Denies: Hx Asthma, Hx Bronchitis, Hx COPD, Hx Pneumonia, Hx Tuberculosis Neurological Medical History: Denies: Hx Cerebrovascular Accident, Hx Seizures Endocrine Medical History: Reports: Hx Hypothyroidism. Denies: Hx Diabetes Mellitus Type 2 Renal/ Medical History: Reports: Hx Renal Insufficiency. 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 Denies: Hx Hysterectomy, Hx Mastectomy, Hx Open Heart Surgery, Hx Pacemaker - Immunizations Hx Diphtheria, Pertussis, Tetanus Vaccination: Yes Hx Pneumococcal Vaccination: 02/25/14 Physical Exam - Vital signs Vitals: Temp Pulse Resp BP Pulse Ox 97.4 F 69 16 132/51 H 95 10/08/17 11:54 10/08/17 11:54 10/08/17 11:54 10/08/17 11:54 10/08/17 11:54 Course - Vital Signs Vital signs: Temp Pulse Resp BP Pulse Ox 97.4 F 69 16 132/51 H 95 10/08/17 11:54 10/08/17 11:54 10/08/17 11:54 10/08/17 11:54 10/08/17 11:54 Discharge - Discharge Clinical Impression: Contusion of buttock Qualifiers: Encounter type: initial encounter Qualified Code(s): S30.0XXA - Contusion of lower back and pelvis, initial encounter Instructions: Contusion ([facility]), Warm Packs ([facility]), Ice Massage ([facility]) Additional Instructions: Examination is consistent with bruising of the buttocks. However there is no tenderness to bony point such as your hips you are able to move her legs without difficulty I do not see any signs or suggestions on your physical examination for fracture. Would recommend taking Tylenol and lidocaine patches for pain control. You can also use warm packs and/or ice packs return to ER symptoms worsen
[2017-10-08 13:40] VITALS: BP 154/56
--- NOTE | 2017-10-08 16:02 | ER Document Report ---
ED General - General Chief Complaint: Pain Stated Complaint: FALL/LEG PAIN Time Seen by Provider: 10/08/17 12:13 TRAVEL OUTSIDE OF THE [place] IN LAST 30 DAYS: No - HPI Patient complains to provider of: Fall right buttocks pain Notes: Patient states had a trip and fall few days prior to arrival and now complaining of right buttocks pain patient states she did also hit her head however no loss consciousness patient is not on any blood thinning medication. Patient states woke up this morning with significant pain in her right buttocks concerned she may broken bone. Patient otherwise states she has been ambulatory denies any fevers chills nausea vomiting diarrhea resting healthy upon my evaluation - Related Data Allergies/Adverse Reactions: codeine [Codeine] Allergy (Severe, Verified 09/03/15 12:20) rash simvastatin [From Zocor] Allergy (Severe, Verified 09/03/15 12:20) severe rash amoxicillin [Amoxicillin] Adverse Reaction (Severe, Verified 09/03/15 12:20) Diarrhea Past Medical History - Social History Smoking Status: Never Smoker Chew tobacco use (# tins/day): No Frequency of alcohol use: None Family History: Reviewed & Not Pertinent Patient has suicidal ideation: No Patient has homicidal ideation: No - Past Medical History Cardiac Medical History: Reports: Hx Heart Attack - 05/2015, Hx Hypercholesterolemia, Hx Hypertension Denies: Hx Coronary Artery Disease Pulmonary Medical History: Denies: Hx Asthma, Hx Bronchitis, Hx COPD, Hx Pneumonia, Hx Tuberculosis Neurological Medical History: Denies: Hx Cerebrovascular Accident, Hx Seizures Endocrine Medical History: Reports: Hx Hypothyroidism. Denies: Hx Diabetes Mellitus Type 2 Renal/ Medical History: Reports: Hx Renal Insufficiency. 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 Denies: Hx Hysterectomy, Hx Mastectomy, Hx Open Heart Surgery, Hx Pacemaker - Immunizations Hx Diphtheria, Pertussis, Tetanus Vaccination: Yes Hx Pneumococcal Vaccination: 02/25/14 Review of Systems - Review of Systems Constitutional: No symptoms reported EENT: No symptoms reported Cardiovascular: No symptoms reported Respiratory: No symptoms reported Gastrointestinal: No symptoms reported Genitourinary: No symptoms reported Female Genitourinary: No symptoms reported Musculoskeletal: Other - Right buttocks pain Skin: No symptoms reported Hematologic/Lymphatic: No symptoms reported Neurological/Psychological: No symptoms reported -: Yes All other systems reviewed and negative Physical Exam - Vital signs Vitals: Temp Pulse Resp BP Pulse Ox 97.4 F 69 16 132/51 H 95 10/08/17 11:54 10/08/17 11:54 10/08/17 11:54 10/08/17 11:54 10/08/17 11:54 Interpretation: Normal - General General appearance: Appears well, Alert - HEENT Head: Normocephalic, Atraumatic Eyes: Normal Pupils: PERRL - Respiratory Respiratory status: No respiratory distress Chest status: Nontender Breath sounds: Normal Chest palpation: Normal - Cardiovascular Rhythm: Regular Heart sounds: Normal auscultation Murmur: No - Abdominal Inspection: Normal Distension: No distension Bowel sounds: Normal Tenderness: Nontender Organomegaly: No organomegaly - Rectal Notes: Patient with bruising to the center of the right buttocks no other signs of trauma. Patient has no tenderness to palpation of the right hip right knee patient is able to perform a straight leg raise without any pain or difficulty or actually right greater than left. Patient denies any pain to palpation of the sacrum bruising is right along the ischium where the patient landed minimal tenderness to this area as well left unaffected - Back Back: Normal, Nontender - Extremities General upper extremity: Normal inspection, Nontender, Normal color, Normal ROM , Normal temperature General lower extremity: Normal inspection, Nontender, Normal color, Normal ROM , Normal temperature, Normal weight bearing. No: Perla's sign - Neurological Neuro grossly intact: Yes Cognition: Normal Orientation: AAOx4 [place] Coma Scale Eye Opening: Spontaneous Trish Coma Scale Verbal: Oriented [place] Coma Scale Motor: Obeys Commands Trish Coma Scale Total: 15 Speech: Normal Motor strength normal: LUE, RUE, LLE, RLE Sensory: Normal - Psychological Associated symptoms: Normal affect, Normal mood - Skin Skin Temperature: Warm Skin Moisture: Dry Skin Color: Normal Course - Re-evaluation Re-evalutation: 10/08/17 15:54 Patient has a contused buttocks. Family is at bedside. Patient patient has no tenderness palpation any other bony prominences. Did offer x-rays however patient amatory since fall grade 2 days be no change in management patient does have any fracture at this time. Patient did believe there is no pain with shortening of the leg and able to ambulate has no hip fracture. No obvious bruising seen on examination family charge home. Family was greatful for care. - Vital Signs Vital signs: Temp Pulse Resp BP Pulse Ox 97.9 F 70 16 154/56 H 97 10/08/17 13:00 10/08/17 13:00 10/08/17 13:00 10/08/17 13:00 10/08/17 13:00 Discharge - Discharge Clinical Impression: Contusion of buttock Qualifiers: Encounter type: initial encounter Qualified Code(s): S30.0XXA - Contusion of lower back and pelvis, initial encounter Condition: Good Disposition: HOME, SELF-CARE Instructions: Contusion ([facility]), Ice Massage ([facility]), Warm Packs ([facility]) Additional Instructions: Examination is consistent with bruising of the buttocks. However there is no tenderness to bony point such as your hips you are able to move her legs without difficulty I do not see any signs or suggestions on your physical examination for fracture. Would recommend taking Tylenol and lidocaine patches for pain control. You can also use warm packs and/or ice packs return to ER symptoms worsen Referrals: JANE LOPEZ MD [ACTIVE STAFF] - Follow up as needed
== END 2017-10-08 13:00 | disposition home or self-care (01) ==
LOC: ER 11:43
DX: S30.0XXA Contusion of lower back and pelvis, initial encounter (principal); W19.XXXA Unspecified fall, initial encounter; I10 Essential (primary) hypertension; I25.2 Old myocardial infarction; Z80.8 Family history of malignant neoplasm of other organs or systems; Z92.3 Personal history of irradiation; Z88.5 Allergy status to narcotic agent; Z88.8 Allergy status to other drugs, medicaments and biological substances
CPT/HCPCS: 99283

== ENCOUNTER 2017-10-21 11:36 | Emergency (ER) | payer MEDICARE, OTHER ==
--- NOTE | 2017-10-21 12:49 | RADIOLOGY REPORT (SQ) ---
EXAM DESCRIPTION: HIP RIGHT AP/LATERAL COMPLETED DATE/TIME: 10/21/2017 12:19 pm REASON FOR STUDY: fell 2 weeks ago COMPARISON: 01/22/2016 NUMBER OF VIEWS: Two views. TECHNIQUE: AP pelvis and additional frog-leg view of the right hip. LIMITATIONS: None. FINDINGS: MINERALIZATION: Osteopenia. RIGHT HIP: No fracture or dislocation. No worrisome bone lesions. LEFT HIP: No fracture or dislocation. No worrisome bone lesions. PUBIS AND ISCHIUM: Old right inferior pubic ramus fracture. PELVIS: No fracture. SACRUM: No fracture or dislocation. No worrisome bone lesions. LOWER LUMBAR SPINE: Spondylosis. SOFT TISSUES: No findings. OTHER: No other significant finding. IMPRESSION: NO RADIOGRAPHIC EVIDENCE OF ACUTE INJURY. TECHNICAL DOCUMENTATION: JOB ID: [id number] [employer]- All Rights Reserved Reading location - IP/workstation name: [email or web address]
[2017-10-21] MEDS ORDERED: LIDOCAINE 5% (700 MG) TRANSDERMAL ADH..PATCH TP ONE (13:15)
--- NOTE | 2017-10-21 13:30 | ER Document Report ---
ED General - General Chief Complaint: Hip Pain Stated Complaint: FALL/HIP PAIN Time Seen by Provider: 10/21/17 12:17 TRAVEL OUTSIDE OF THE [place] IN LAST 30 DAYS: No - HPI Patient complains to provider of: Right hip pain Notes: Patient coming in for evaluation of right hip pain ongoing since Sunday. Patient denies any new trauma denies any fevers chills nausea vomiting diarrhea patient states making it difficult to get for her to get out of bed. Patient points to the right upper buttocks pelvic wing on the right side - Related Data Allergies/Adverse Reactions: codeine [Codeine] Allergy (Severe, Verified 09/03/15 12:20) rash simvastatin [From Zocor] Allergy (Severe, Verified 09/03/15 12:20) severe rash amoxicillin [Amoxicillin] Adverse Reaction (Severe, Verified 09/03/15 12:20) Diarrhea Past Medical History - Social History Smoking Status: Never Smoker Chew tobacco use (# tins/day): No Frequency of alcohol use: None Drug Abuse: None Family History: Reviewed & Not Pertinent Patient has suicidal ideation: No Patient has homicidal ideation: No - Past Medical History Cardiac Medical History: Reports: Hx Heart Attack - 05/2015, Hx Hypercholesterolemia, Hx Hypertension Denies: Hx Coronary Artery Disease Pulmonary Medical History: Denies: Hx Asthma, Hx Bronchitis, Hx COPD, Hx Pneumonia, Hx Tuberculosis Neurological Medical History: Denies: Hx Cerebrovascular Accident, Hx Seizures Endocrine Medical History: Reports: Hx Hypothyroidism. Denies: Hx Diabetes Mellitus Type 2 Renal/ Medical History: Reports: Hx Renal Insufficiency. 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 Denies: Hx Hysterectomy, Hx Mastectomy, Hx Open Heart Surgery, Hx Pacemaker - Immunizations Hx Diphtheria, Pertussis, Tetanus Vaccination: Yes Hx Pneumococcal Vaccination: 02/25/14 Review of Systems - Review of Systems Constitutional: No symptoms reported EENT: No symptoms reported Cardiovascular: No symptoms reported Respiratory: No symptoms reported Gastrointestinal: No symptoms reported Genitourinary: No symptoms reported Female Genitourinary: No symptoms reported Musculoskeletal: Other - Right hip pain Skin: No symptoms reported Hematologic/Lymphatic: No symptoms reported Neurological/Psychological: No symptoms reported -: Yes All other systems reviewed and negative Physical Exam - Vital signs Vitals: Temp Pulse Resp BP Pulse Ox 98.0 F 98 18 141/56 H 96 10/21/17 11:42 10/21/17 11:42 10/21/17 11:42 10/21/17 11:42 10/21/17 11:42 Interpretation: Normal - General General appearance: Appears well, Alert - HEENT Head: Normocephalic, Atraumatic Eyes: Normal Pupils: PERRL - Respiratory Respiratory status: No respiratory distress Chest status: Nontender Breath sounds: Normal Chest palpation: Normal - Cardiovascular Rhythm: Regular Heart sounds: Normal auscultation Murmur: No - Abdominal Inspection: Normal Distension: No distension Bowel sounds: Normal Tenderness: Nontender Organomegaly: No organomegaly - Back Back: Normal, Nontender - Extremities General upper extremity: Normal inspection, Nontender, Normal color, Normal ROM , Normal temperature General lower extremity: Normal inspection, Tender - Patient has mild tenderness to palpation of the right upper iliac wing upper gluteal daly muscle is exacerbated with internal rotation of the hip there is no pain with in -line compression, Normal color, Normal ROM, Normal temperature, Normal weight bearing. No: Perla's sign - Neurological Neuro grossly intact: Yes Cognition: Normal Orientation: AAOx4 [place] Coma Scale Eye Opening: Spontaneous Trish Coma Scale Verbal: Oriented Trish Coma Scale Motor: Obeys Commands Trish Coma Scale Total: 15 Speech: Normal Motor strength normal: LUE, RUE, LLE, RLE Sensory: Normal - Psychological Associated symptoms: Normal affect, Normal mood - Skin Skin Temperature: Warm Skin Moisture: Dry Skin Color: Normal Course - Re-evaluation Re-evalutation: 10/21/17 15:33 Pain consistent with a muscle strain or muscle injury. No signs of fracture on x-ray. Patient will be discharged home patient is pending eye surgery stating she cannot taking anti-inflammatory medication or narcotic medications. Therefore recommended patient have warm packs ice packs lidocaine patches and take Tylenol 1 g 4 times a day - Vital Signs Vital signs: Temp Pulse Resp BP Pulse Ox 98 F 85 18 148/60 H 97 10/21/17 13:52 10/21/17 13:52 10/21/17 13:52 10/21/17 13:52 10/21/17 13:52 Discharge - Discharge Clinical Impression: Muscle strain of gluteal region Qualifiers: Encounter type: initial encounter Laterality: right Qualified Code(s): S76.011A - Strain of muscle, fascia and tendon of right hip, initial encounter Condition: Good Disposition: HOME, SELF-CARE Instructions: Muscle Strain ([facility]) Additional Instructions: Your evaluation today does not show any signs of fracture. Your physical examination is consistent with a muscle strain more lately when the gluteal muscles on the right side. Please continue with lidocaine patches. Also recommend alternating between ice and heat. I also recommend taking Tylenol 1000 mg (1gram or two 500mg) tablets 4 times a day as needed for pain. This should not interfere with your surgery however please check your list at home. Return to ER for any other concerns. Prescriptions: Lidocaine [Lidoderm 5% (700 mg) Transdermal Patch] 1 patch TP DAILY #30 adh..patch Referrals: JANE LOPEZ MD [Primary Care Provider] - Follow up as needed
[2017-10-21 13:56] VITALS: BP 148/60
== END 2017-10-21 13:52 | disposition home or self-care (01) ==
LOC: ER 11:36
DX: S76.011A Strain of muscle, fascia and tendon of right hip, initial encounter (principal); X58.XXXA Exposure to other specified factors, initial encounter; E78.00 Pure hypercholesterolemia, unspecified; I10 Essential (primary) hypertension; E03.9 Hypothyroidism, unspecified; Z88.6 Allergy status to analgesic agent; Z88.0 Allergy status to penicillin; I25.2 Old myocardial infarction; Z90.49 Acquired absence of other specified parts of digestive tract
CPT/HCPCS: 99283

== ENCOUNTER → 2017-12-14 | Outpatient (CLI) | payer MEDICARE, OTHER ==
[2017-12-14 08:28] LABS: HEMATOCRIT 42.4 % (36.0-47.0); HEMOGLOBIN 14.2 g/dL (12.0-15.5); MEAN CORPUSCULAR HGB CONC 33.5 g/dL (32.0-36.0); MEAN CORPUSCULAR VOLUME 99 fl (80-97); PLATELET COUNT 235 10^3/uL (150-450); RED CELL DISTRIBUTION WIDTH 14.8 % (11.5-14.0); WHITE BLOOD COUNT 11.3 10^3/uL (4.0-10.5)
[2017-12-14 08:57] LABS: ANION GAP 11 (5-19); BLOOD UREA NITROGEN 21 mg/dL (7-20); CARBON DIOXIDE 25 mmol/L (22-30); CHLORIDE 111 mmol/L (98-107); GLUCOSE 94 mg/dL (75-110); PHOSPHORUS 3.3 mg/dL (2.5-4.5); POTASSIUM 4.1 mmol/L (3.6-5.0); SODIUM 147.1 mmol/L (137-145)
[2017-12-14 09:05] LABS: APPEARANCE,URINE SLIGHTLY-CLOUDY; BILIRUBIN,URINE NEGATIVE (NEGATIVE); COLOR,URINE YELLOW; GLUCOSE, URINE NEGATIVE (NEGATIVE); KETONES,URINE NEGATIVE (NEGATIVE); LEUKOCYTE ESTERASE,URINE LARGE (NEGATIVE); NITRITE,URINE NEGATIVE (NEGATIVE); PROTEIN,URINE NEGATIVE (NEGATIVE); URINE SPECIFIC GRAVITY 1.012; UROBILINOGEN,URINE NEGATIVE mg/dL (<2.0)
== END ==
LOC: OD 08:03
PROVIDERS: ATTEND Physician Assistant Medical
DX: I12.9 Hypertensive chronic kidney disease with stage 1 through stage 4 chronic kidney disease, or unspecified chronic kidney disease (principal); N18.3 Chronic kidney disease, stage 3 (moderate); E87.1 Hypo-osmolality and hyponatremia
CPT/HCPCS: 36415; 80048; 81001; 83970; 84100; 85027

== ENCOUNTER 2017-12-26 00:55 | Inpatient (IN) | payer MEDICARE, OTHER ==
[2017-12-26 02:53] LABS: ABSOLUTE BASOPHILS # (AUTO) 0.1 10^3/uL (0.0-0.2); ABSOLUTE EOSINOPHILS # (AUTO) 0.1 10^3/uL (0.0-0.6); ABSOLUTE LYMPHOCYTES (AUTO) 1.8 10^3/uL (0.5-4.7); ABSOLUTE NEUT (AUTO) 8.2 10^3/uL (1.7-8.2); BASOPHILS % (AUTO) 0.9 % (0-2); HEMATOCRIT 43.4 % (36.0-47.0); HEMOGLOBIN 14.1 g/dL (12.0-15.5); LYMPHOCYTES % (AUTO) 16.1 % (13-45); MEAN CORPUSCULAR HEMOGLOBIN 32.4 pg (27.0-33.4); MEAN CORPUSCULAR HGB CONC 32.5 g/dL (32.0-36.0); MEAN CORPUSCULAR VOLUME 100 fl (80-97); MONOCYTES % (AUTO) 9.2 % (3-13); PLATELET COUNT 241 10^3/uL (150-450); RED BLOOD COUNT 4.35 10^6/uL (3.72-5.28); RED CELL DISTRIBUTION WIDTH 15.1 % (11.5-14.0); SEGMENTED NEUTROPHILS % (AUTO) 72.8 % (42-78); TOTAL CELLS COUNTED % (AUTO) 100 %; WHITE BLOOD COUNT 11.3 10^3/uL (4.0-10.5)
[2017-12-26 03:04] LABS: ANION GAP 10 (5-19); BLOOD UREA NITROGEN 22 mg/dL (7-20); CALCIUM 9.5 mg/dL (8.4-10.2); CARBON DIOXIDE 29 mmol/L (22-30); CHLORIDE 106 mmol/L (98-107); GLUCOSE 113 mg/dL (75-110); SODIUM 145.2 mmol/L (137-145)
[2017-12-26 03:13] LABS: APPEARANCE,URINE CLEAR; BILIRUBIN,URINE NEGATIVE (NEGATIVE); COLOR,URINE YELLOW; GLUCOSE, URINE NEGATIVE (NEGATIVE); KETONES,URINE NEGATIVE (NEGATIVE); LEUKOCYTE ESTERASE,URINE NEGATIVE (NEGATIVE); NITRITE,URINE NEGATIVE (NEGATIVE); PROTEIN,URINE NEGATIVE (NEGATIVE); UROBILINOGEN,URINE NEGATIVE mg/dL (<2.0)
--- NOTE | 2017-12-26 03:20 | RADIOLOGY REPORT (SQ) ---
EXAM DESCRIPTION: CT HEAD WITHOUT IV CONTRAST COMPLETED DATE/TME: 12/26/2017 01:07 CLINICAL HISTORY: 82 years Female, altered mental status COMPARISON: 3.5.18 TECHNIQUE: No contrast. Axial images only. This exam was performed according to our departmental dose-optimization program, which includes automated exposure control, adjustment of the mA and/or kV according to patient size and/or use of iterative reconstruction technique. FINDINGS: No hemorrhage or infarct. No mass, mass effect, or midline shift. Mild parenchymal volume loss, mild left maxillary mucosal thickening, atherosclerosis. Brain and extra-axial structures appear intact. IMPRESSION: No acute findings.
--- NOTE | 2017-12-26 04:06 | RADIOLOGY REPORT (SQ) ---
Chest single view on 12/26/2017 at 3:55 AM CLINICAL INDICATION: Altered mental status COMPARISON: 07/27/2017 FINDINGS: Heart is upper limits normal for size. Vascular calcification is noted in the aorta. Minimal biapical scarring is noted. There is minimal basilar atelectasis or scarring. The lungs are otherwise clear. Pulmonary vascularity is within normal limits. IMPRESSION: No acute disease.
[2017-12-26 04:45] LABS: FREE T4 (FREE THYROXINE) 1.87 ng/dL (0.78-2.19)
--- NOTE | 2017-12-26 04:57 | ER Document Report ---
ED General <ISAIAS OSCAR - Last Filed: 12/26/17 08:08> - General TRAVEL OUTSIDE OF THE [place] IN LAST 30 DAYS: No <TRUDY BHARDWAJ - Last Filed: 12/26/17 22:59> - General Chief Complaint: Altered Mental Status Stated Complaint: ALTERED LOC Time Seen by Provider: 12/26/17 01:02 Notes: Patient is a pleasant 82-year-old female who is brought in because of altered mental status. Patient does live at home. Daughter lives nearby. Patient does have home health nurse that helps her at the house. She recently had surgery on her left side. This was performed on Sunday. She was prescribed Ultram which was filled yesterday. She will dose of Ultram the day before. She is doing okay. She started having pain again and therefore she took another one. Home health nurses the patient has been much more sleepier than usual and at one point was almost unresponsive at the house. Since arriving to the ER she has become improved. Patient's mental status worsened after taking the second dose of Ultram. The ambulance note mentions some possibility of abdominal pain. Patient currently denies any abdominal pain. She denies ever having any chest pain or shortness of breath. No fever since surgery. She currently tells me the only place she has any pain in his where she had surgery on her left eye. (TRUDY BHARDWAJ) - Related Data Allergies/Adverse Reactions: codeine [Codeine] Allergy (Severe, Verified 09/03/15 12:20) rash simvastatin [From Zocor] Allergy (Severe, Verified 09/03/15 12:20) severe rash amoxicillin [Amoxicillin] Adverse Reaction (Severe, Verified 09/03/15 12:20) Diarrhea Past Medical History - Social History Smoking Status: Never Smoker Chew tobacco use (# tins/day): No Frequency of alcohol use: None Drug Abuse: None Family History: Reviewed & Not Pertinent Patient has suicidal ideation: No Patient has homicidal ideation: No - Past Medical History Cardiac Medical History: Reports: Hx Heart Attack - 05/2015, Hx Hypercholesterolemia, Hx Hypertension Denies: Hx Coronary Artery Disease Pulmonary Medical History: Denies: Hx Asthma, Hx Bronchitis, Hx COPD, Hx Pneumonia, Hx Tuberculosis Neurological Medical History: Denies: Hx Cerebrovascular Accident, Hx Seizures Endocrine Medical History: Reports: Hx Hypothyroidism. Denies: Hx Diabetes Mellitus Type 2 Renal/ Medical History: Reports: Hx Renal Insufficiency. 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 Denies: Hx Hysterectomy, Hx Mastectomy, Hx Open Heart Surgery, Hx Pacemaker - Immunizations Hx Diphtheria, Pertussis, Tetanus Vaccination: Yes Hx Pneumococcal Vaccination: 02/25/14 <TRUDY BHARDWAJ - Last Filed: 12/26/17 22:59> Review of Systems <ISAIAS OSCAR - Last Filed: 12/26/17 08:08> <TRUDY BHARDWAJ - Last Filed: 12/26/17 22:59> - Review of Systems Notes: My Normal Review Basic REVIEW OF SYSTEMS: CONSTITUTIONAL : Denies fever, chills, or sweats. Denies recent illness. RESPIRATORY: Denies cough, cold, or chest congestion. Denies shortness of breath, difficulty breathing, or wheezing. GASTROINTESTINAL: Denies abdominal pain. Denies nausea, vomiting, or diarrhea. GENITOURINARY: Denies difficulty urinating, painful urination, burning, frequency, or blood in urine. MUSCULOSKELETAL: Denies neck or back pain or joint pain or swelling. SKIN: Denies rash or skin lesions. NEUROLOGICAL: Altered mental status today. Denies headache. Denies weakness or paralysis or loss of use of either side. Denies problems with gait or speech. Denies sensory or motor loss. ALL OTHER SYSTEMS REVIEWED AND NEGATIVE. (TRUDY BHARDWAJ) Physical Exam <ISAIAS OSCAR - Last Filed: 12/26/17 08:08> <TRUDY BHARDWAJ - Last Filed: 12/26/17 22:59> - Vital signs Vitals: Resp Pulse Ox 17 92 12/26/17 01:07 12/26/17 01:07 - Notes Notes: General Appearance: Well nourished, alert with slight somnolence, cooperative, no acute distress, no obvious discomfort. Vitals: reviewed, See vital signs table. Head: no swelling or tenderness to the head Eyes: PERRL, EOMI, Conjuctiva clear Mouth: No decreasd moisture Throat: No tonsillar inflammation, No airway obstruction, No lymphadenopathy Neck: Supple, no neck tenderness, No thyromegaly Lungs: No wheezing, No rales, No rhonci, No accessory muscle use, good air exchange bilaterally. Heart: Normal rate, Regular rythm, No murmur, no rub Abdomen: Normal BS, soft, No rigidity, No abdominal tenderness, No guarding, no rebound, no abdominal masses, no organomegaly Extremities: strength 5/5 in all extremities, good pulses in all extremities, no swelling or tenderness in the extremities, no edema. Skin: warm, dry, appropriate color, hives like rash on chest and abdomen. Neuro: speech clear, patient is little bit somnolent but becomes more alert when he talked her and maintain conversation with her. Oriented x 3, normal affect, responds appropriately to questions. Cranial nerves II through XII are intact. Distal sensation intact. Patient moves all extremities without difficulty. (TRUDY BHARDWAJ) Course - Laboratory Result Diagrams: 12/26/17 02:30 12/26/17 02:30 <ISAIAS OSCAR - Last Filed: 12/26/17 08:08> - Laboratory Result Diagrams: 12/26/17 02:30 12/26/17 02:30 <TRUDY BHARDWAJ - Last Filed: 12/26/17 22:59> - Re-evaluation Re-evalutation: 12/26/17 05:31 On reevaluation patient is again able to be awoken but she still says she feels very woozy. Daughter is at bedside and daughter was going to take her home however when we stood her up to try to see how she ambulates patient has very difficult time standing up on her own. Usually walks with a walker so I supported her like a walker but patient would not even take a few steps forward is her gait is very staggered soon as she tries to put her step forward and she starts to fall. Patient and daughter both say that typically she usually gets around with a walker very fast without any difficulty and she still very somewhat compared to her baseline. I do think this is probably still related to the Ultram. I do not see signs of infection. CT scan of her head is negative. She has never been a smoker and has no history of COPD and therefore not really concerned for hypercapnia at this time. She is gradually improved since she has been here but still is nowhere near back to her baseline despite being here for almost 6 hours. I therefore call hospitalist for consideration for admission. Patient's primary care doctor is Dr. Koch however according to recall she the hospitalist discomfort Dr. Koch today. Patient continues have a hives-like rash on chest abdomen which again I think is probably related to the Ultram being that started after she started taking Ultram. She is itching. I will give her a dose of Pepcid as opposed to Benadryl being that Pepcid is much less sedating. Dictation of this chart was performed using voice recognition software; therefore, there may be some unintended grammatical errors. 12/26/17 05:33 (TRUDY BHARDWAJ) - Vital Signs Vital signs: Temp Pulse Resp BP Pulse Ox 98.2 F 73 16 110/40 L 96 12/26/17 15:47 12/26/17 15:47 12/26/17 15:47 12/26/17 15:47 12/26/17 11:02 - Laboratory Laboratory results interpreted by me: 12/26/17 12/26/17 12/26/17 02:30 02:30 02:30 WBC 11.3 H MCV 100 H RDW 15.1 H Sodium 145.2 H BUN 22 H Creatinine 2.21 H Est GFR ( Amer) 26 L Est GFR (Non-Af Amer) 21 L Glucose 113 H TSH < 0.01 L Discharge - Discharge Admitting Provider: Hospitalist Unit Admitted: Telemetry <ISAIAS OSCAR - Last Filed: 12/26/17 08:08> <TRUDY BHARDWAJ - Last Filed: 12/26/17 22:59> - Discharge Clinical Impression: Renal insufficiency Altered mental status Qualifiers: Altered mental status type: unspecified Qualified Code(s): R41.82 - Altered mental status, unspecified Condition: Good Disposition: ADMITTED OBSERVATION
[2017-12-26 05:00] LABS: THYROID STIMULATING HORMONE < 0.01 uIU/mL (0.47-4.68)
[2017-12-26] MEDS ORDERED: FAMOTIDINE INJ/PF 20 MG/2 ML SDV IV ONE (05:30)
[2017-12-26] MEDS ORDERED: NORMAL SALINE 500 ML IV ONE (05:31)
[2017-12-26] MEDS ORDERED: NORMAL SALINE 1000 ML 1,000 ML IV PRN (09:00)
[2017-12-26] MEDS: HYDROCORTISONE 1% CREAM 28.35 GM TP PRN (11:01)
--- NOTE | 2017-12-26 19:27 | PDOC H&P ---
History of Present Illness Admission Date/PCP: 12/26/17 08:24 JANE LOPEZ MD Patient complains of: confusion, rash History of Present Illness: SAMEERA SAINZ is a 82 year old female with a past medical history of hypertension, prior myocardial infarction status post stenting 3 years ago, CKD and hypothyroidism who presented with confusion and rash. Apparently patient had an eyelid surgery 3 days ago and patient was discharged on Ultram 50 mg tablet. She was apparently well however after dose of Ultram on Sunday, patient developed a rash in the chest. She also started becoming confused. Her blood pressure was also noted to be low at 70/50. Patient's daughter said that patient had a total of 2 doses of tramadol after these manifestations developed. Patient is found by knocker out lethargic on the bed. She was brought to the ER where patient was noted to be easily arousable. However when patient was encouraged to walk patient was shaky and was unable to stand and walk properly. 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, resulting blindness GI Medical History: Denies: Diverticulitis, Hepatitis, Hiatal Hernia Musculoskeltal Medical History: Reports: Gout Comment Only: Arthritis - gout Psychiatric Medical History: Reports: Depression Hematology: Denies: Anemia, Sickle Cell Disease Past Surgical History Past Surgical History: Reports: Appendectomy, Cardiac Catheterization - stents x 2, Cholecystectomy, Orthopedic Surgery - carpal tunnel Denies: Amputation, Hysterectomy, Mastectomy, Pacemaker Social History Smoking Status: Never Smoker Frequency of Alcohol Use: None Hx Recreational Drug Use: No Drugs: None Hx Prescription Drug Abuse: No - Advance Directive Resuscitation Status: Full Code Family History Family History: Reviewed & Not Pertinent Parental Family History Reviewed: Yes Children Family History Reviewed: No Sibling(s) Family History Reviewed.: No Medication/Allergy Home Medications: Allopurinol [Zyloprim 100 mg Tablet] 100 mg PO QAM 12/26/17 Aspirin [Aspirin EC] 81 mg PO QAM 12/26/17 Atorvastatin Calcium [Lipitor 80 mg Tablet] 80 mg PO QHS 12/26/17 B Complex W-C No.20/Folic Acid [Renal Caps Softgel] 1 cap PO QAM 12/26/17 Furosemide [Lasix 20 mg Tablet] 20 mg PO QAM 12/26/17 Gabapentin [Neurontin] 600 mg PO QHS 12/26/17 Hydralazine HCl [Apresoline 25 mg Tablet] 25 mg PO Q12 12/26/17 Levothyroxine Sodium [Synthroid] 125 mcg PO QAM 12/26/17 Metoprolol Succinate [Toprol Xl] 50 mg PO WSUPPER 12/26/17 Telmisartan [Micardis 80 mg Tablet] 80 mg PO QAM 12/26/17 Allergies/Adverse Reactions: codeine [Codeine] Allergy (Severe, Verified 09/03/15 12:20) rash simvastatin [From Zocor] Allergy (Severe, Verified 09/03/15 12:20) severe rash amoxicillin [Amoxicillin] Adverse Reaction (Severe, Verified 09/03/15 12:20) Diarrhea Review of Systems Constitutional: ABSENT: chills, fever(s), headache(s), weight gain, weight loss Ears: ABSENT: hearing changes Cardiovascular: ABSENT: chest pain, dyspnea on exertion, edema, orthropnea, palpitations Respiratory: ABSENT: cough, hemoptysis Gastrointestinal: ABSENT: abdominal pain, constipation, diarrhea, hematemesis, hematochezia, nausea, vomiting Musculoskeletal: PRESENT: as per HPI Neurological: PRESENT: as per HPI Psychiatric: PRESENT: as per HPI Endocrine: ABSENT: cold intolerance, heat intolerance, polydipsia, polyuria Physical Exam Vital Signs: Temp Pulse Resp BP Pulse Ox 98.2 F 73 16 110/40 L 96 12/26/17 15:47 12/26/17 15:47 12/26/17 15:47 12/26/17 15:47 12/26/17 11:02 General appearance: PRESENT: no acute distress, cooperative, well-developed, well-nourished Head exam: PRESENT: atraumatic, normocephalic Eye exam: PRESENT: other - Patient has a patch in the left eye. Patient and daughter refused to have the patch removed to be examined as they were told that patient had a skin graft on the eyelid area and that the information broker told them not to have anyone touch it. Neck exam: ABSENT: carotid bruit, JVD, lymphadenopathy, thyromegaly Respiratory exam: PRESENT: clear to auscultation susan. ABSENT: rales, rhonchi, wheezes Cardiovascular exam: PRESENT: RRR. ABSENT: diastolic murmur, rubs, systolic murmur Pulses: PRESENT: normal dorsalis pedis pul GI/Abdominal exam: PRESENT: normal bowel sounds, soft. ABSENT: distended, guarding, mass, organolmegaly, rebound, tenderness Rectal exam: PRESENT: deferred Extremities exam: PRESENT: full ROM. ABSENT: calf tenderness, clubbing, pedal edema Neurological exam: PRESENT: alert, awake, oriented to person, oriented to place , oriented to time, oriented to situation, CN II-XII grossly intact Psychiatric exam: PRESENT: appropriate affect, normal mood. ABSENT: homicidal ideation, suicidal ideation Skin exam: PRESENT: dry, intact, warm. ABSENT: cyanosis, rash Results Impressions: Head CT 12/26/17 01:07 IMPRESSION: No acute findings. Chest X-Ray 12/26/17 03:34 IMPRESSION: No acute disease. Assessment & Plan - Diagnosis (1) Acute encephalopathy Is this a current diagnosis for this admission?: Yes Plan: Patient was brought in because of confusion and lethargy. Acute encephalopathy appears to be resolved. This is likely from tramadol effect this patient is elderly and has CKD. This patient is awake coherent and oriented. However she still feels weak and is unable to maintain a stable gait and maintain posterior. Will continue to monitor patient's status. (2) Acute on chronic renal failure Qualifiers: Chronic kidney disease stage: stage 3 (moderate) Is this a current diagnosis for this admission?: Yes Plan: Patient's creatinine is up to 2.3 from a baseline of 1.2. Will give IV fluids. AKA slightly ATN related from patient's hypotension at home after she was given tramadol. Hold antihypertensive medications for now. (3) Rash Is this a current diagnosis for this admission?: Yes Plan: Patient has a flat erythematous rash in the chest which is likely secondary to tramadol allergy.
[2017-12-26] MEDS ORDERED: GABAPENTIN 300 MG CAPSULE PO SCH (22:00)
[2017-12-26] MEDS: HYDRALAZINE HCL 25 MG TABLET PO SCH (22:12)
[2017-12-26] MEDS: ATORVASTATIN CALCIUM 80 MG TABLET PO SCH (22:27)
[2017-12-27] MEDS: LEVOTHYROXINE SODIUM 0.1 MG TABLET PO SCH (05:28)
[2017-12-27] MEDS ORDERED: LEVOTHYROXINE SODIUM 0.025 MG TABLET PO SCH (06:00)
[2017-12-27] MEDS ORDERED: (PENDING PHARMACY ID) (Telmisartan [Micardis 80 Mg Tablet] 80 MG) PO SCH (08:00)
[2017-12-27] MEDS ORDERED: FUROSEMIDE 20 MG TABLET PO SCH (08:00)
[2017-12-27] MEDS ORDERED: LOSARTAN POTASSIUM 50 MG TABLET PO SCH (08:00)
[2017-12-27] MEDS ORDERED: (PENDING PHARMACY ID) (Levothyroxine Sodium [Synthroid] 125 MCG) PO SCH (08:00)
[2017-12-27 08:44] LABS: ANION GAP 11 (5-19); BLOOD UREA NITROGEN 26 mg/dL (7-20); CARBON DIOXIDE 24 mmol/L (22-30); CHLORIDE 112 mmol/L (98-107); GLUCOSE 98 mg/dL (75-110); POTASSIUM 4.2 mmol/L (3.6-5.0); SODIUM 146.6 mmol/L (137-145)
[2017-12-27] MEDS: HYDRALAZINE HCL 25 MG TABLET PO SCH (09:24)
[2017-12-27] MEDS: ALLOPURINOL 100 MG TABLET PO SCH (09:25)
[2017-12-27] MEDS: HYDROCORTISONE 1% CREAM 28.35 GM TP PRN (09:26)
--- NOTE | 2017-12-27 14:10 | PDOC PROGRESS REPORT ---
Subjective Progress Note for:: 12/27/17 Subjective:: cant walk Reason For Visit: ACUTE ENCEPHALOPATHY Physical Exam Vital Signs: Temp Pulse Resp BP Pulse Ox 99.7 F 90 16 149/58 H 100 12/27/17 08:00 12/27/17 08:00 12/27/17 08:00 12/27/17 08:00 12/27/17 08:00 Intake & Output 12/26/17 12/27/17 12/28/17 07:59 07:59 07:59 Intake Total 237 Output Total 900 Balance -663 Weight 367 lb 1.114 oz General appearance: PRESENT: no acute distress Respiratory exam: PRESENT: clear to auscultation susan Cardiovascular exam: ABSENT: diastolic murmur, irregular rhythm, systolic murmur GI/Abdominal exam: ABSENT: mass, organolmegaly, tenderness Neurological exam: PRESENT: altered, abnormal gait, ataxia, other - myoclonus. Cant stand with 2 assistants. Psychiatric exam: PRESENT: appropriate affect Results Laboratory Results: 12/27/17 07:30 12/27/17 07:30 Sodium 146.6 H Potassium 4.2 Chloride 112 H Carbon Dioxide 24 Anion Gap 11 BUN 26 H Creatinine 2.02 H Est GFR ( Amer) 29 L Est GFR (Non-Af Amer) 24 L Glucose 98 Calcium 9.0 Impressions: Head CT 12/26/17 01:07 IMPRESSION: No acute findings. Chest X-Ray 12/26/17 03:34 IMPRESSION: No acute disease. Assessment & Plan - Diagnosis (1) Myoclonus Is this a current diagnosis for this admission?: Yes Plan: from tramadol & ckd & ?gabapentin. Stop gabapentin. Physical therapy. (2) Benign neoplasm of pituitary gland Is this a current diagnosis for this admission?: Yes Plan: resume cortef decrease thyroxine (3) Essential (primary) hypertension Is this a current diagnosis for this admission?: Yes Plan: was low on furosemide & losartan. 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 Qualifiers: Diabetes mellitus assisted insulin use: without exterminator helper use Chronic kidney disease stage: stage 4 (severe) Qualified Code(s): E11.22 - Type 2 diabetes mellitus with diabetic chronic kidney disease; N18.4 - Chronic kidney disease, stage 4 (severe); N18.4 - Chronic kidney disease, stage 4 (severe); N18.4 - Chronic kidney disease, stage 4 (severe); N18.4 - Chronic kidney disease , stage 4 (severe) Is this a current diagnosis for this admission?: Yes Plan: stop furosemide & losartan - Inpatient Certification Based on my medical assessment, after consideration of the patient's comorbidities, presenting symptoms, or acuity I expect that the services needed warrant INPATIENT care.: Yes I certify that my determination is in accordance with my understanding of Medicare's requirements for reasonable and necessary INPATIENT services [42 CFR 412.3e].: Yes Medical Necessity: Significant Comorbidiites Make Outpatient Treatment Too Risky , Need Close Monitoring Due to Risk of Patient Decompensation, Need For Continuous Telemetry Monitoring, Risk of Complication if Not Cared For in Hospital, Risk of Diagnosis Which Will Require Inpatient Eval/Care/Monitoring
[2017-12-27] MEDS ORDERED: ACETAMINOPHEN 325 MG TABLET ONE (17:12)
[2017-12-27] MEDS: METOPROLOL SUCCINATE 50 MG TAB.SR.24H PO SCH (17:26)
[2017-12-27] MEDS: HYDROCORTISONE 10 MG TABLET PO SCH ×2 (17:27→17:30)
[2017-12-27 17:57] LABS: ARTERIAL BLOOD BASE EXCESS -3.1 mmol/L; ARTERIAL BLOOD H2CO3 1.27 mmol/L (1.05-1.35); ARTERIAL BLOOD HCO3 22.5 mmol/L (20-26); ARTERIAL BLOOD O2 SATURATION 99.6 % (94-98); ARTERIAL BLOOD PCO2 42.1 mmHg (35-45); ARTERIAL BLOOD PH 7.35 (7.35-7.45); ARTERIAL BLOOD PO2 277.1 mmHg (80-100); ARTERIAL BLOOD TOTAL CO2 23.8 mmol/L (21-25)
[2017-12-27 17:59] LABS: ARTERIAL BLOOD FIO2 15L
[2017-12-27 18:07] LABS: ABSOLUTE BASOPHILS # (AUTO) 0.1 10^3/uL (0.0-0.2); ABSOLUTE EOSINOPHILS # (AUTO) 0.4 10^3/uL (0.0-0.6); ABSOLUTE LYMPHOCYTES (AUTO) 2.1 10^3/uL (0.5-4.7); ABSOLUTE MONOCYTES (AUTO) 1.2 10^3/uL (0.1-1.4); ABSOLUTE NEUT (AUTO) 5.9 10^3/uL (1.7-8.2); BASOPHILS % (AUTO) 1.1 % (0-2); EOSINOPHILS % (AUTO) 4.2 % (0-6); HEMATOCRIT 42.3 % (36.0-47.0); LYMPHOCYTES % (AUTO) 21.9 % (13-45); MEAN CORPUSCULAR HEMOGLOBIN 33.2 pg (27.0-33.4); MEAN CORPUSCULAR HGB CONC 33.1 g/dL (32.0-36.0); MEAN CORPUSCULAR VOLUME 100 fl (80-97); MONOCYTES % (AUTO) 12.3 % (3-13); PLATELET COUNT 219 10^3/uL (150-450); RED BLOOD COUNT 4.22 10^6/uL (3.72-5.28); RED CELL DISTRIBUTION WIDTH 15.5 % (11.5-14.0); SEGMENTED NEUTROPHILS % (AUTO) 60.5 % (42-78); TOTAL CELLS COUNTED % (AUTO) 100 %; WHITE BLOOD COUNT 9.7 10^3/uL (4.0-10.5)
[2017-12-27 18:35] LABS: ANION GAP 10 (5-19); BLOOD UREA NITROGEN 20 mg/dL (7-20); CALCIUM 9.2 mg/dL (8.4-10.2); CARBON DIOXIDE 23 mmol/L (22-30); CHLORIDE 113 mmol/L (98-107); GLUCOSE 120 mg/dL (75-110); POTASSIUM 3.9 mmol/L (3.6-5.0); SODIUM 146.4 mmol/L (137-145)
--- NOTE | 2017-12-27 18:53 | RADIOLOGY REPORT (SQ) ---
EXAM DESCRIPTION: CHEST SINGLE VIEW COMPLETED DATE/TIME: 12/27/2017 6:42 pm REASON FOR STUDY: Low 02 saturation COMPARISON: None. EXAM PARAMETERS: NUMBER OF VIEWS: One view. TECHNIQUE: Single frontal radiographic view of the chest acquired. RADIATION DOSE: NA LIMITATIONS: None. FINDINGS: LUNGS AND PLEURA: No opacities, masses or pneumothorax. No pleural effusion. MEDIASTINUM AND HILAR STRUCTURES: No masses. Contour normal. HEART AND VASCULAR STRUCTURES: Heart normal in size. Normal vasculature. BONES: No acute findings. HARDWARE: None in the chest. OTHER: No other significant finding. IMPRESSION: NO ACUTE RADIOGRAPHIC FINDING IN THE CHEST. TECHNICAL DOCUMENTATION: JOB ID: [id number] [employer]- All Rights Reserved Reading location - IP/workstation name: [email or web address]
[2017-12-27 21:40] LABS: APPEARANCE,URINE CLEAR; BILIRUBIN,URINE NEGATIVE (NEGATIVE); COLOR,URINE YELLOW; GLUCOSE, URINE NEGATIVE (NEGATIVE); KETONES,URINE NEGATIVE (NEGATIVE); LEUKOCYTE ESTERASE,URINE NEGATIVE (NEGATIVE); NITRITE,URINE NEGATIVE (NEGATIVE); PROTEIN,URINE NEGATIVE (NEGATIVE); URINE SPECIFIC GRAVITY 1.006; UROBILINOGEN,URINE NEGATIVE mg/dL (<2.0)
[2017-12-27] MEDS: CEFTRIAXONE SODIUM 1,000 MG in DEXTROSE 5%-WATER 50 ML IV SCH (21:56)
[2017-12-27] MEDS: ATORVASTATIN CALCIUM 80 MG TABLET PO SCH (21:56)
--- NOTE | 2017-12-27 22:37 | EKG REPORT ---
SEVERITY:- ABNORMAL ECG - SINUS TACHYCARDIA RIGHT BUNDLE BRANCH BLOCK LATERAL INFARCT, AGE INDETERMINATE ANTERIOR INFARCT, AGE INDETERMINATE : Confirmed by: Blayne Mullen 27-Dec-2017 22:36:55
[2017-12-28] MEDS: LEVOTHYROXINE SODIUM 0.1 MG TABLET PO SCH (05:41)
--- NOTE | 2017-12-28 08:44 | PDOC PROGRESS REPORT ---
Subjective Progress Note for:: 12/28/17 Subjective:: no pain dyspnea but says nose congested Reason For Visit: MYOCLONUS Physical Exam Vital Signs: Temp Pulse Resp BP Pulse Ox 99.3 F 87 12 154/53 H 94 12/28/17 07:33 12/28/17 07:33 12/28/17 07:33 12/28/17 07:33 12/28/17 07:33 Intake & Output 12/27/17 12/28/17 12/29/17 07:59 07:59 07:59 Intake Total 237 350 Output Total 900 1800 Balance -663 -1450 Weight 166 lb 8 oz 166 lb 14.239 oz General appearance: PRESENT: disheveled Eye exam: PRESENT: other - R pupil mid reactive. L still bandaged as [facility] suggests. ABSENT: conjunctiva pink, scleral icterus Mouth exam: PRESENT: dry mucosa Respiratory exam: PRESENT: clear to auscultation susan Cardiovascular exam: PRESENT: systolic murmur. ABSENT: diastolic murmur, irregular rhythm Murmur grade: 2 GI/Abdominal exam: ABSENT: mass, organolmegaly, tenderness Extremities exam: ABSENT: pedal edema Neurological exam: PRESENT: altered - lethargic, other - OK L hearing. Not awake enough for sensory testing. Face symmetric. Tongue midline. Shrugs shoulders. Grip5. Moves feet.. ABSENT: oriented to time, oriented to situation , reflexes normal - no knee jerks Results Laboratory Results: 12/27/17 17:55 12/27/17 17:55 Labs- Last Values WBC 9.7 10^3/uL (4.0-10.5) 12/27/17 17:55 RBC 4.22 10^6/uL (3.72-5.28) 12/27/17 17:55 Hgb 14.0 g/dL (12.0-15.5) 12/27/17 17:55 Hct 42.3 % (36.0-47.0) 12/27/17 17:55 MCV 100 fl (80-97) H 12/27/17 17:55 MCH 33.2 pg (27.0-33.4) 12/27/17 17:55 MCHC 33.1 g/dL (32.0-36.0) 12/27/17 17:55 RDW 15.5 % (11.5-14.0) H 12/27/17 17:55 Plt Count 219 10^3/uL (150-450) 12/27/17 17:55 Seg Neutrophils % 60.5 % (42-78) 12/27/17 17:55 Lymphocytes % 21.9 % (13-45) 12/27/17 17:55 Monocytes % 12.3 % (3-13) 12/27/17 17:55 Eosinophils % 4.2 % (0-6) 12/27/17 17:55 Basophils % 1.1 % (0-2) 12/27/17 17:55 Absolute Neutrophils 5.9 10^3/uL (1.7-8.2) 12/27/17 17:55 Absolute Lymphocytes 2.1 10^3/uL (0.5-4.7) 12/27/17 17:55 Absolute Monocytes 1.2 10^3/uL (0.1-1.4) 12/27/17 17:55 Absolute Eosinophils 0.4 10^3/uL (0.0-0.6) 12/27/17 17:55 Absolute Basophils 0.1 10^3/uL (0.0-0.2) 12/27/17 17:55 Carbonic Acid 1.27 mmol/L (1.05-1.35) 12/27/17 17:44 HCO3/H2CO3 Ratio 17:1 12/27/17 17:44 ABG pH 7.35 (7.35-7.45) 12/27/17 17:44 ABG pCO2 42.1 mmHg (35-45) 12/27/17 17:44 ABG pO2 277.1 mmHg (80-100) H 12/27/17 17:44 ABG HCO3 22.5 mmol/L (20-26) 12/27/17 17:44 ABG Total CO2 23.8 mmol/L (21-25) 12/27/17 17:44 ABG O2 Saturation 99.6 % (94-98) H 12/27/17 17:44 ABG Base Excess -3.1 mmol/L 12/27/17 17:44 FiO2 15L 12/27/17 17:44 Sodium 146.4 mmol/L (137-145) H 12/27/17 17:55 Potassium 3.9 mmol/L (3.6-5.0) 12/27/17 17:55 Chloride 113 mmol/L (98-107) H 12/27/17 17:55 Carbon Dioxide 23 mmol/L (22-30) 12/27/17 17:55 Anion Gap 10 (5-19) 12/27/17 17:55 BUN 20 mg/dL (7-20) 12/27/17 17:55 Creatinine 2.10 mg/dL (0.52-1.25) H 12/27/17 17:55 Est GFR ( Amer) 27 (>60) L 12/27/17 17:55 Est GFR (Non-Af Amer) 23 (>60) L 12/27/17 17:55 Glucose 120 mg/dL (75-110) H 12/27/17 17:55 POC Glucose 179 mg/dL (70-110) H 12/27/17 17:18 Lactic Acid 1.8 mmol/L (0.7-2.1) 12/27/17 17:55 Calcium 9.2 mg/dL (8.4-10.2) 12/27/17 17:55 Troponin I 0.027 ng/mL 12/27/17 17:55 TSH < 0.01 uIU/mL (0.47-4.68) L 12/26/17 02:30 Free T4 1.87 ng/dL (0.78-2.19) 12/26/17 02:30 Urine Color YELLOW 12/27/17 21:20 Urine Appearance CLEAR 12/27/17 21:20 Urine pH 5.0 (5.0-9.0) 12/27/17 21:20 Ur Specific [place] 1.006 12/27/17 21:20 Urine Protein NEGATIVE mg/dL (NEGATIVE) 12/27/17 21:20 Urine Glucose (UA) NEGATIVE mg/dL (NEGATIVE) 12/27/17 21:20 Urine Ketones NEGATIVE mg/dL (NEGATIVE) 12/27/17 21:20 Urine Blood SMALL (NEGATIVE) H 12/27/17 21:20 Urine Nitrite NEGATIVE (NEGATIVE) 12/27/17 21:20 Urine Bilirubin NEGATIVE (NEGATIVE) 12/27/17 21:20 Urine Urobilinogen NEGATIVE mg/dL (<2.0) 12/27/17 21:20 Ur Leukocyte Esterase NEGATIVE (NEGATIVE) 12/27/17 21:20 Urine WBC (Auto) 1 /HPF 12/27/17 21:20 Urine RBC (Auto) 1 /HPF 12/27/17 21:20 U Hyaline Cast (Auto) 6 /LPF 12/26/17 02:30 Urine Bacteria (Auto) TRACE /HPF 12/27/17 21:20 Urine Mucus (Auto) RARE /LPF 12/27/17 21:20 Urine Ascorbic Acid NEGATIVE (NEGATIVE) 12/27/17 21:20 Impressions: Head CT 12/26/17 01:07 IMPRESSION: No acute findings. Chest X-Ray 12/27/17 00:00 IMPRESSION: NO ACUTE RADIOGRAPHIC FINDING IN THE CHEST. Assessment & Plan - Diagnosis (1) Fever due to infection Is this a current diagnosis for this admission?: Yes Plan: cultures negative so far. Started ceftri. (2) Stupor Is this a current diagnosis for this admission?: Yes Plan: Exam nonfocal. Meds should be gone. 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 Will need rehab. (3) Myoclonus Is this a current diagnosis for this admission?: Yes Plan: gone. (4) Benign neoplasm of pituitary gland Is this a current diagnosis for this admission?: Yes Plan: continue cortef 10tid (5) Essential (primary) hypertension Is this a current diagnosis for this admission?: Yes Plan: bp no longer low off some meds (6) Drug-induced retention of urine Is this a current diagnosis for this admission?: Yes Plan: garcia after serveral straight caths for 600ml. 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 Qualifiers: Diabetes mellitus longterm insulin use: without longterm use Chronic kidney disease stage: stage 4 (severe) Qualified Code(s): E11.22 - Type 2 diabetes mellitus with diabetic chronic kidney disease; N18.4 - Chronic kidney disease, stage 4 (severe); N18.4 - Chronic kidney disease, stage 4 (severe); N18.4 - Chronic kidney disease, stage 4 (severe); N18.4 - Chronic kidney disease , stage 4 (severe) Is this a current diagnosis for this admission?: Yes Plan: usually needs no meds but will cover - Inpatient Certification Medical Necessity: Failure to Improve With Outpatient Therapy, Significant Comorbidiites Make Outpatient Treatment Too Risky, Need Close Monitoring Due to Risk of Patient Decompensation, Need For Continuous Telemetry Monitoring, Need for Neurological Checks, Need for IV Antibiotics, Risk of Complication if Not Cared For in Hospital, Risk of Diagnosis Which Will Require Inpatient Eval/Care/ Monitoring
[2017-12-28] MEDS: ALLOPURINOL 100 MG TABLET PO SCH (09:04)
[2017-12-28] MEDS: HYDROCORTISONE 10 MG TABLET PO SCH ×3 (09:04→17:55)
[2017-12-28] MEDS: METOPROLOL SUCCINATE 50 MG TAB.SR.24H PO SCH (17:56)
[2017-12-28] MEDS: ATORVASTATIN CALCIUM 80 MG TABLET PO SCH (22:15)
[2017-12-28] MEDS: CEFTRIAXONE SODIUM 1,000 MG in DEXTROSE 5%-WATER 50 ML IV SCH (22:15)
[2017-12-29] MEDS: LEVOTHYROXINE SODIUM 0.1 MG TABLET PO SCH (06:41)
[2017-12-29] MEDS ORDERED: INSULIN REG, HUMAN 100 UNIT/ML 3 ML VIAL (PYX) SUBCUT PRN (07:10)
[2017-12-29] MEDS ORDERED: GLUCAGON,HUMAN RECOMB 1 MG INJ IM PRN (07:10)
[2017-12-29] MEDS ORDERED: DEXTROSE 50%-WATER 25 GM/50 ML DISP.SYRIN IV PRN ×2 (07:10)
[2017-12-29] MEDS ORDERED: DEXTROSE 40% GEL 15 GM TUBE PO PRN ×2 (07:10)
--- NOTE | 2017-12-29 07:10 | PDOC PROGRESS REPORT ---
Subjective Progress Note for:: 12/29/17 Subjective:: better. Did have general anesthesia for L blepharoplasty. Reason For Visit: MYOCLONUS Physical Exam Vital Signs: Temp Pulse Resp BP Pulse Ox 97.7 F 81 18 149/57 H 97 12/29/17 04:25 12/29/17 04:25 12/29/17 04:25 12/29/17 04:25 12/29/17 04:25 Intake & Output 12/27/17 12/28/17 12/29/17 07:59 07:59 07:59 Intake Total 400 Output Total 850 Balance -450 Weight 174 lb 9.698 oz General appearance: PRESENT: no acute distress Respiratory exam: PRESENT: clear to auscultation susan Cardiovascular exam: PRESENT: systolic murmur. ABSENT: diastolic murmur, irregular rhythm Murmur grade: 2 GI/Abdominal exam: ABSENT: mass, organolmegaly, tenderness Extremities exam: ABSENT: pedal edema Neurological exam: PRESENT: alert, oriented to person, oriented to place, oriented to time, oriented to situation. ABSENT: motor sensory deficit - can hold up hands and feet Psychiatric exam: PRESENT: appropriate affect Results Impressions: Head CT 12/26/17 01:07 IMPRESSION: No acute findings. Chest X-Ray 12/27/17 00:00 IMPRESSION: NO ACUTE RADIOGRAPHIC FINDING IN THE CHEST. Assessment & Plan - Diagnosis (1) Fever due to infection Is this a current diagnosis for this admission?: Yes Plan: afebrile d3 ceftri. Urine growing 100k gram negatives. (2) Stupor Is this a current diagnosis for this admission?: Yes Plan: lifted (3) Myoclonus Is this a current diagnosis for this admission?: Yes Plan: gone (4) Benign neoplasm of pituitary gland Is this a current diagnosis for this admission?: Yes (5) Essential (primary) hypertension Is this a current diagnosis for this admission?: Yes Plan: back. Resume hydralazine. 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
[2017-12-29 08:28] LABS: ABSOLUTE BASOPHILS # (AUTO) 0.1 10^3/uL (0.0-0.2); ABSOLUTE EOSINOPHILS # (AUTO) 0.5 10^3/uL (0.0-0.6); ABSOLUTE LYMPHOCYTES (AUTO) 1.9 10^3/uL (0.5-4.7); ABSOLUTE MONOCYTES (AUTO) 0.9 10^3/uL (0.1-1.4); ABSOLUTE NEUT (AUTO) 12.5 10^3/uL (1.7-8.2); BASOPHILS % (AUTO) 0.4 % (0-2); EOSINOPHILS % (AUTO) 2.9 % (0-6); HEMATOCRIT 42.3 % (36.0-47.0); HEMOGLOBIN 14.2 g/dL (12.0-15.5); MEAN CORPUSCULAR HEMOGLOBIN 33.1 pg (27.0-33.4); MEAN CORPUSCULAR HGB CONC 33.5 g/dL (32.0-36.0); MEAN CORPUSCULAR VOLUME 99 fl (80-97); MONOCYTES % (AUTO) 5.8 % (3-13); PLATELET COUNT 208 10^3/uL (150-450); RED BLOOD COUNT 4.28 10^6/uL (3.72-5.28); RED CELL DISTRIBUTION WIDTH 15.4 % (11.5-14.0); SEGMENTED NEUTROPHILS % (AUTO) 78.9 % (42-78); TOTAL CELLS COUNTED % (AUTO) 100 %; WHITE BLOOD COUNT 15.8 10^3/uL (4.0-10.5)
[2017-12-29] MEDS: ALLOPURINOL 100 MG TABLET PO SCH (08:35)
[2017-12-29 08:49] LABS: ANION GAP 12 (5-19); BLOOD UREA NITROGEN 18 mg/dL (7-20); CALCIUM 9.5 mg/dL (8.4-10.2); CARBON DIOXIDE 22 mmol/L (22-30); CHLORIDE 113 mmol/L (98-107); GLUCOSE 98 mg/dL (75-110); POTASSIUM 4.4 mmol/L (3.6-5.0); SODIUM 146.5 mmol/L (137-145)
[2017-12-29] MEDS: HYDRALAZINE HCL 25 MG TABLET PO SCH ×2 (10:55→21:31)
[2017-12-29] MEDS: HYDROCORTISONE 10 MG TABLET PO SCH ×3 (10:55→17:44)
[2017-12-29] MEDS: METOPROLOL SUCCINATE 50 MG TAB.SR.24H PO SCH (17:44)
[2017-12-29] MEDS ORDERED: NORMAL SALINE 1000 ML 1,000 ML IV PRN (19:30)
[2017-12-29] MEDS: CEFTRIAXONE SODIUM 1,000 MG in DEXTROSE 5%-WATER 50 ML IV SCH (21:31)
[2017-12-29] MEDS: ATORVASTATIN CALCIUM 80 MG TABLET PO SCH (21:31)
[2017-12-30] MEDS: ACETAMINOPHEN 325 MG TABLET PO PRN ×3 (04:19→21:18)
[2017-12-30] MEDS: LEVOTHYROXINE SODIUM 0.1 MG TABLET PO SCH (05:15)
--- NOTE | 2017-12-30 07:18 | PDOC PROGRESS REPORT ---
Subjective Progress Note for:: 12/30/17 Subjective:: R wrist pain. Reason For Visit: MYOCLONUS Physical Exam Vital Signs: Temp Pulse Resp BP Pulse Ox 98.1 F 88 20 169/54 H 98 12/30/17 04:00 12/30/17 04:00 12/30/17 04:00 12/30/17 04:00 12/30/17 04:00 Intake & Output 12/28/17 12/29/17 12/30/17 07:59 07:59 07:59 Intake Total 400 503 Output Total 850 1485 Balance -450 -982 Weight 174 lb 9.698 oz 172 lb 9.951 oz General appearance: PRESENT: no acute distress Respiratory exam: PRESENT: clear to auscultation susan Cardiovascular exam: PRESENT: systolic murmur. ABSENT: diastolic murmur, irregular rhythm Murmur grade: 2 GI/Abdominal exam: ABSENT: mass, organolmegaly, tenderness Extremities exam: PRESENT: joint swelling - R wrist., tenderness - R wrist not navicular.. ABSENT: pedal edema Neurological exam: ABSENT: oriented to time Psychiatric exam: PRESENT: appropriate affect Results Laboratory Results: 12/29/17 07:45 12/29/17 07:45 12/29/17 12/29/17 07:45 07:45 WBC 15.8 H RBC 4.28 Hgb 14.2 Hct 42.3 MCV 99 H MCH 33.1 MCHC 33.5 RDW 15.4 H Plt Count 208 Seg Neutrophils % 78.9 H Lymphocytes % 12.0 L Monocytes % 5.8 Eosinophils % 2.9 Basophils % 0.4 Absolute Neutrophils 12.5 H Absolute Lymphocytes 1.9 Absolute Monocytes 0.9 Absolute Eosinophils 0.5 Absolute Basophils 0.1 Sodium 146.5 H Potassium 4.4 Chloride 113 H Carbon Dioxide 22 Anion Gap 12 BUN 18 Creatinine 1.40 H Est GFR ( Amer) 44 L Est GFR (Non-Af Amer) 36 L Glucose 98 Calcium 9.5 Impressions: Head CT 12/26/17 01:07 IMPRESSION: No acute findings. Chest X-Ray 12/27/17 00:00 IMPRESSION: NO ACUTE RADIOGRAPHIC FINDING IN THE CHEST. Assessment & Plan - Diagnosis (1) Fever due to infection Is this a current diagnosis for this admission?: Yes Plan: 100k enterobacter sensitive to ceftriaxone. (2) Stupor Is this a current diagnosis for this admission?: Yes (3) Myoclonus Is this a current diagnosis for this admission?: Yes (4) Benign neoplasm of pituitary gland Is this a current diagnosis for this admission?: Yes (5) Essential (primary) hypertension Is this a current diagnosis for this admission?: Yes Plan: stop IVF. Resume arb. 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 Qualifiers: Diabetes mellitus cashiers buss[employer] runners insulin use: without cashiers bussers food runners use Chronic kidney disease stage: stage 4 (severe) Qualified Code(s): E11.22 - Type 2 diabetes mellitus with diabetic chronic kidney disease; N18.4 - Chronic kidney disease, stage 4 (severe); N18.4 - Chronic kidney disease, stage 4 (severe); N18.4 - Chronic kidney disease, stage 4 (severe); N18.4 - Chronic kidney disease , stage 4 (severe) Is this a current diagnosis for this admission?: Yes (8) Wrist pain, right Is this a current diagnosis for this admission?: Yes Plan: xray - Inpatient Certification Medical Necessity: Failure to Improve With Outpatient Therapy, Significant Comorbidiites Make Outpatient Treatment Too Risky, Need Close Monitoring Due to Risk of Patient Decompensation, Need For Continuous Telemetry Monitoring, Need for IV Antibiotics, Risk of Complication if Not Cared For in Hospital, Risk of Diagnosis Which Will Require Inpatient Eval/Care/Monitoring
[2017-12-30 08:29] LABS: ANION GAP 14 (5-19); BLOOD UREA NITROGEN 18 mg/dL (7-20); CALCIUM 9.2 mg/dL (8.4-10.2); CARBON DIOXIDE 19 mmol/L (22-30); CHLORIDE 114 mmol/L (98-107); GLUCOSE 101 mg/dL (75-110); POTASSIUM 3.9 mmol/L (3.6-5.0); SODIUM 147.3 mmol/L (137-145)
--- NOTE | 2017-12-30 08:33 | RADIOLOGY REPORT (SQ) ---
EXAM DESCRIPTION: WRIST RIGHT 3 VIEWS COMPLETED DATE/TIME: 12/30/2017 8:25 am REASON FOR STUDY: pain tenderness swelling. Navicular not tender. R41.82 ALTERED MENTAL STATUS, UNS PECIFIED COMPARISON: None. NUMBER OF VIEWS: Three views. TECHNIQUE: AP, lateral, and oblique radiographic images acquired of the right wrist. LIMITATIONS: None. FINDINGS: MINERALIZATION: Normal. BONES: There is evidence of marked degenerative arthritis at the 1st carpometacarpal joint. Degener ative change at the 1st metacarpal phalangeal joint. Articular calcification consistent with changes of chondrocalcinosis. SOFT TISSUES: No soft tissue swelling. No foreign body. OTHER: No other significant finding. 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 TECHNICAL DOCUMENTATION: JOB ID: [id number] [employer]- All Rights Reserved Reading location - IP/workstation name: [email or web address]
[2017-12-30] MEDS: FOLIC ACID/VITAMIN B COMP W-C CAPSULE PO SCH (08:36)
[2017-12-30] MEDS: ASPIRIN 81 MG TABLET, ENT COATED PO SCH (08:36)
[2017-12-30] MEDS: ALLOPURINOL 100 MG TABLET PO SCH (08:36)
[2017-12-30] MEDS: HYDROCORTISONE 10 MG TABLET PO SCH ×3 (11:13→18:25)
[2017-12-30] MEDS: LOSARTAN POTASSIUM 50 MG TABLET PO SCH (11:13)
[2017-12-30] MEDS: HYDRALAZINE HCL 25 MG TABLET PO SCH ×2 (11:13→21:18)
[2017-12-30] MEDS: METOPROLOL SUCCINATE 50 MG TAB.SR.24H PO SCH (18:25)
[2017-12-30] MEDS: CEFTRIAXONE SODIUM 1,000 MG in DEXTROSE 5%-WATER 50 ML IV SCH (21:18)
[2017-12-30] MEDS: ATORVASTATIN CALCIUM 80 MG TABLET PO SCH (21:18)
[2017-12-31] MEDS: LEVOTHYROXINE SODIUM 0.1 MG TABLET PO SCH (05:33)
[2017-12-31 07:26] LABS: ANION GAP 12 (5-19); BLOOD UREA NITROGEN 20 mg/dL (7-20); CALCIUM 9.1 mg/dL (8.4-10.2); CARBON DIOXIDE 18 mmol/L (22-30); CHLORIDE 114 mmol/L (98-107); GLUCOSE 96 mg/dL (75-110); POTASSIUM 3.8 mmol/L (3.6-5.0); SODIUM 144.4 mmol/L (137-145)
--- NOTE | 2017-12-31 07:50 | PDOC PROGRESS REPORT ---
Subjective Progress Note for:: 12/31/17 Subjective:: daughter says more talkative Reason For Visit: MYOCLONUS Physical Exam Vital Signs: Temp Pulse Resp BP Pulse Ox 98.3 F 69 16 148/53 H 96 12/31/17 07:07 12/31/17 07:07 12/31/17 07:07 12/31/17 07:07 12/31/17 07:07 Intake & Output 12/29/17 12/30/17 12/31/17 07:59 07:59 07:59 Intake Total 400 503 443 Output Total 850 1485 800 Balance -450 -982 -357 Weight 174 lb 9.698 oz 172 lb 9.951 oz 176 lb 12.972 oz Respiratory exam: PRESENT: clear to auscultation susan Cardiovascular exam: PRESENT: systolic murmur. ABSENT: diastolic murmur, irregular rhythm Murmur grade: 2 GI/Abdominal exam: ABSENT: mass, organolmegaly, tenderness Neurological exam: PRESENT: oriented to time Psychiatric exam: PRESENT: appropriate affect Results Laboratory Results: 12/29/17 07:45 12/31/17 06:50 12/30/17 12/31/17 07:06 06:50 Sodium 147.3 H 144.4 Potassium 3.9 3.8 Chloride 114 H 114 H Carbon Dioxide 19 L 18 L Anion Gap 14 12 BUN 18 20 Creatinine 1.24 1.09 Est GFR ( Amer) 50 L 58 L Est GFR (Non-Af Amer) 41 L 48 L Glucose 101 96 Calcium 9.2 9.1 Impressions: Head CT 12/26/17 01:07 IMPRESSION: No acute findings. Chest X-Ray 12/27/17 00:00 IMPRESSION: NO ACUTE RADIOGRAPHIC FINDING IN THE CHEST. Wrist X-Ray 12/30/17 00:00 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 Assessment & Plan - Diagnosis (1) Fever due to infection Is this a current diagnosis for this admission?: Yes Plan: afebrile d5 acftri (2) Stupor Is this a current diagnosis for this admission?: Yes Plan: slowly improving. Told daughter she must eat and drink with iv out. (3) Myoclonus Is this a current diagnosis for this admission?: Yes (4) Benign neoplasm of pituitary gland Is this a current diagnosis for this admission?: Yes (5) Essential (primary) hypertension Is this a current diagnosis for this admission?: Yes Plan: down on arb too (6) Drug-induced retention of urine Is this a current diagnosis for this admission?: Yes Plan: tamsulosin. Try pulling garcia when more mobile. 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 Pseudogout & gout. Colcrys.
[2017-12-31] MEDS ORDERED: COLCHICINE 0.6 MG TABLET PO ONE (08:15)
[2017-12-31] MEDS: ALLOPURINOL 100 MG TABLET PO SCH (09:16)
[2017-12-31] MEDS: LOSARTAN POTASSIUM 50 MG TABLET PO SCH (09:16)
[2017-12-31] MEDS: FOLIC ACID/VITAMIN B COMP W-C CAPSULE PO SCH (09:16)
[2017-12-31] MEDS: HYDRALAZINE HCL 25 MG TABLET PO SCH ×2 (09:16→22:00)
[2017-12-31] MEDS: HYDROCORTISONE 10 MG TABLET PO SCH ×3 (09:16→17:00)
[2017-12-31] MEDS: ASPIRIN 81 MG TABLET, ENT COATED PO SCH (09:16)
[2017-12-31] MEDS: METOPROLOL SUCCINATE 50 MG TAB.SR.24H PO SCH (17:00)
[2017-12-31] MEDS: ACETAMINOPHEN 325 MG TABLET PO PRN (17:03)
[2017-12-31] MEDS ORDERED: TAMSULOSIN HCL 0.4 MG CAP.SR.24H PO SCH (18:00)
[2017-12-31] MEDS: ATORVASTATIN CALCIUM 80 MG TABLET PO SCH (22:00)
[2017-12-31] MEDS: CEFTRIAXONE SODIUM 1,000 MG in DEXTROSE 5%-WATER 50 ML IV SCH (22:01)
[2018-01-01] MEDS: LEVOTHYROXINE SODIUM 0.1 MG TABLET PO SCH (05:12)
--- NOTE | 2018-01-01 07:23 | PDOC DISCHARGE SUMMARY ---
General - Admit/Disc Date/PCP Admission Date/Primary Care Provider: 12/28/17 05:14 JANE LOPEZ MD Discharge Date: 01/01/18 - Discharge Diagnosis (1) Fever due to infection Is this a current diagnosis for this admission?: Yes (2) Stupor Is this a current diagnosis for this admission?: Yes (3) Myoclonus Is this a current diagnosis for this admission?: Yes (4) Benign neoplasm of pituitary gland Is this a current diagnosis for this admission?: Yes (5) Essential (primary) hypertension Is this a current diagnosis for this admission?: Yes 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 Is this a current diagnosis for this admission?: Yes (8) Wrist pain, right Is this a current diagnosis for this admission?: Yes - Additional Information Resuscitation Status: Full Code Discharge Diet: Diabetic Discharge Activity: Supervised Activity Prescriptions: Hydrocortisone [Cortef 10 mg Tablet] 10 mg PO TID #90 tablet Tamsulosin HCl [Flomax 0.4 mg Cap.sr] 0.4 mg PO PCSUPPER #30 cap.sr.24h Home Medications: Allopurinol [Zyloprim 100 mg Tablet] 100 mg PO QAM 12/26/17 Aspirin [Aspirin EC] 81 mg PO QAM 12/26/17 Atorvastatin Calcium [Lipitor 80 mg Tablet] 80 mg PO QHS 12/26/17 B Complex W-C No.20/Folic Acid [Renal Caps Softgel] 1 cap PO QAM 12/26/17 Hydralazine HCl [Apresoline 25 mg Tablet] 25 mg PO Q12 12/26/17 Levothyroxine Sodium [Synthroid] 125 mcg PO QAM 12/26/17 Metoprolol Succinate [Toprol Xl] 50 mg PO WSUPPER 12/26/17 Telmisartan [Micardis 80 mg Tablet] 80 mg PO QAM 12/26/17 Hydrocortisone [Cortef 10 mg Tablet] 10 mg PO TID #90 tablet 01/01/18 Tamsulosin HCl [Flomax 0.4 mg Cap.sr] 0.4 mg PO PCSUPPER #30 cap.sr.24h History of Present Illness History of Present Illness: SAMEERA SAINZ is a 82 year old female with confusion post op L blepharoplasty. Hospital Course Hospital Course: Stupor and myoclonus gradually improved off tramadol gabapentin and with iv fluids to correct jason. Now she is oriented and can pivot with 2 assistants. Urine grew 100k enterobacter. She had 6d ceftriaxone. Muro for retention was pulled after starting tamsulosin. Her L lids are still sewn shut. The wounds are not red. Physical Exam Vital Signs: Temp Pulse Resp BP Pulse Ox 98.4 F 71 16 145/59 H 93 01/01/18 03:34 01/01/18 07:00 01/01/18 03:34 01/01/18 03:34 01/01/18 03:34 Intake & Output 12/30/17 12/31/17 01/01/18 07:59 07:59 07:59 Intake Total 503 443 586 Output Total 1485 800 750 Balance -982 -357 -164 Weight 172 lb 9.951 oz 176 lb 12.972 oz 171 lb 15.369 oz General appearance: PRESENT: no acute distress Respiratory exam: PRESENT: clear to auscultation susan Cardiovascular exam: PRESENT: systolic murmur. ABSENT: diastolic murmur, irregular rhythm Murmur grade: 2 GI/Abdominal exam: ABSENT: mass, organolmegaly, tenderness Extremities exam: ABSENT: pedal edema Neurological exam: PRESENT: oriented to time Psychiatric exam: PRESENT: appropriate affect Results Laboratory Results: 12/29/17 07:45 12/31/17 06:50 Labs- Last Values WBC 15.8 10^3/uL (4.0-10.5) H 12/29/17 07:45 RBC 4.28 10^6/uL (3.72-5.28) 12/29/17 07:45 Hgb 14.2 g/dL (12.0-15.5) 12/29/17 07:45 Hct 42.3 % (36.0-47.0) 12/29/17 07:45 MCV 99 fl (80-97) H 12/29/17 07:45 MCH 33.1 pg (27.0-33.4) 12/29/17 07:45 MCHC 33.5 g/dL (32.0-36.0) 12/29/17 07:45 RDW 15.4 % (11.5-14.0) H 12/29/17 07:45 Plt Count 208 10^3/uL (150-450) 12/29/17 07:45 Seg Neutrophils % 78.9 % (42-78) H 12/29/17 07:45 Lymphocytes % 12.0 % (13-45) L 12/29/17 07:45 Monocytes % 5.8 % (3-13) 12/29/17 07:45 Eosinophils % 2.9 % (0-6) 12/29/17 07:45 Basophils % 0.4 % (0-2) 12/29/17 07:45 Absolute Neutrophils 12.5 10^3/uL (1.7-8.2) H 12/29/17 07:45 Absolute Lymphocytes 1.9 10^3/uL (0.5-4.7) 12/29/17 07:45 Absolute Monocytes 0.9 10^3/uL (0.1-1.4) 12/29/17 07:45 Absolute Eosinophils 0.5 10^3/uL (0.0-0.6) 12/29/17 07:45 Absolute Basophils 0.1 10^3/uL (0.0-0.2) 12/29/17 07:45 Carbonic Acid 1.27 mmol/L (1.05-1.35) 12/27/17 17:44 HCO3/H2CO3 Ratio 17:1 12/27/17 17:44 ABG pH 7.35 (7.35-7.45) 12/27/17 17:44 ABG pCO2 42.1 mmHg (35-45) 12/27/17 17:44 ABG pO2 277.1 mmHg (80-100) H 12/27/17 17:44 ABG HCO3 22.5 mmol/L (20-26) 12/27/17 17:44 ABG Total CO2 23.8 mmol/L (21-25) 12/27/17 17:44 ABG O2 Saturation 99.6 % (94-98) H 12/27/17 17:44 ABG Base Excess -3.1 mmol/L 12/27/17 17:44 FiO2 15L 12/27/17 17:44 Sodium 144.4 mmol/L (137-145) 12/31/17 06:50 Potassium 3.8 mmol/L (3.6-5.0) 12/31/17 06:50 Chloride 114 mmol/L (98-107) H 12/31/17 06:50 Carbon Dioxide 18 mmol/L (22-30) L 12/31/17 06:50 Anion Gap 12 (5-19) 12/31/17 06:50 BUN 20 mg/dL (7-20) 12/31/17 06:50 Creatinine 1.09 mg/dL (0.52-1.25) 12/31/17 06:50 Est GFR ( Amer) 58 (>60) L 12/31/17 06:50 Est GFR (Non-Af Amer) 48 (>60) L 12/31/17 06:50 Glucose 96 mg/dL (75-110) 12/31/17 06:50 POC Glucose 112 mg/dL (70-110) H 01/01/18 06:24 Lactic Acid 1.8 mmol/L (0.7-2.1) 12/27/17 17:55 Calcium 9.1 mg/dL (8.4-10.2) 12/31/17 06:50 Troponin I 0.027 ng/mL 12/27/17 17:55 TSH < 0.01 uIU/mL (0.47-4.68) L 12/26/17 02:30 Free T4 1.87 ng/dL (0.78-2.19) 12/26/17 02:30 Urine Color YELLOW 12/27/17 21:20 Urine Appearance CLEAR 12/27/17 21:20 Urine pH 5.0 (5.0-9.0) 12/27/17 21:20 Ur Specific [place] 1.006 12/27/17 21:20 Urine Protein NEGATIVE mg/dL (NEGATIVE) 12/27/17 21:20 Urine Glucose (UA) NEGATIVE mg/dL (NEGATIVE) 12/27/17 21:20 Urine Ketones NEGATIVE mg/dL (NEGATIVE) 12/27/17 21:20 Urine Blood SMALL (NEGATIVE) H 12/27/17 21:20 Urine Nitrite NEGATIVE (NEGATIVE) 12/27/17 21:20 Urine Bilirubin NEGATIVE (NEGATIVE) 12/27/17 21:20 Urine Urobilinogen NEGATIVE mg/dL (<2.0) 12/27/17 21:20 Ur Leukocyte Esterase NEGATIVE (NEGATIVE) 12/27/17 21:20 Urine WBC (Auto) 1 /HPF 12/27/17 21:20 Urine RBC (Auto) 1 /HPF 12/27/17 21:20 U Hyaline Cast (Auto) 6 /LPF 12/26/17 02:30 Urine Bacteria (Auto) TRACE /HPF 12/27/17 21:20 Urine Mucus (Auto) RARE /LPF 12/27/17 21:20 Urine Ascorbic Acid NEGATIVE (NEGATIVE) 12/27/17 21:20 Impressions: Head CT 12/26/17 01:07 IMPRESSION: No acute findings. Chest X-Ray 12/27/17 00:00 IMPRESSION: NO ACUTE RADIOGRAPHIC FINDING IN THE CHEST. Wrist X-Ray 12/30/17 00:00 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 Qualifiers - * PATIENT BEING DISCHARGED WITH ANY OF THE FOLLOWING DIAGNOSIS: No Plan Discharge Plan: home health. OV 2w me. 2d oph.
[2018-01-01] MEDS: ASPIRIN 81 MG TABLET, ENT COATED PO SCH (08:48)
[2018-01-01] MEDS: FOLIC ACID/VITAMIN B COMP W-C CAPSULE PO SCH (08:48)
[2018-01-01] MEDS: ALLOPURINOL 100 MG TABLET PO SCH (08:48)
[2018-01-01] MEDS: HYDRALAZINE HCL 25 MG TABLET PO SCH (09:00)
[2018-01-01] MEDS: HYDROCORTISONE 10 MG TABLET PO SCH (09:00)
[2018-01-01] MEDS: LOSARTAN POTASSIUM 50 MG TABLET PO SCH (09:00)
[2018-01-01 09:01] LABS: ANION GAP 11 (5-19); BLOOD UREA NITROGEN 22 mg/dL (7-20); CALCIUM 8.8 mg/dL (8.4-10.2); CARBON DIOXIDE 20 mmol/L (22-30); CHLORIDE 114 mmol/L (98-107); GLUCOSE 83 mg/dL (75-110); POTASSIUM 3.6 mmol/L (3.6-5.0); SODIUM 144.9 mmol/L (137-145)
[2018-01-01 10:19] VITALS: BP 147/58
[2018-01-01] MEDS: ACETAMINOPHEN 325 MG TABLET PO PRN (10:33)
--- NOTE | 2018-01-03 12:06 | DISCHARGE SUMMARY E ---
Discharge Summary NAME: SAMEERA SAINZ : 1935 AGE: 82Y ADMITTED: 12/28/2017 DISCHARGED: 01/01/2018 ADDENDUM: Fever due to infection should be fever due to Enterobacter UTI. DICTATING PHYSICIAN: JANE LOPEZ M.D. [id number] [id number] ID: [id number] JOB#: [id number] ACCT: [id number] cc:JANE LOPEZ M.D. >
== END 2018-01-01 10:45 | disposition home health service (06) | DRG 683 ==
LOC: ER 00:55 → UNDOADMOB 08:24 → EH 08:24 → INTOOBSV 08:24 → OBSVTOIN 08:24 → 4S 11:46 → OBSVTOIN 12-28 05:14
PROVIDERS: ADMIT Family Medicine; ATTEND Family Medicine
DX: N17.9 Acute kidney failure, unspecified (principal); N39.0 Urinary tract infection, site not specified; N18.4 Chronic kidney disease, stage 4 (severe); I12.9 Hypertensive chronic kidney disease with stage 1 through stage 4 chronic kidney disease, or unspecified chronic kidney disease; T40.4X5A Adverse effect of other synthetic narcotics, initial encounter; R33.0 Drug induced retention of urine; T44.6X5A Adverse effect of alpha-adrenoreceptor antagonists, initial encounter; M11.231 Other chondrocalcinosis, right wrist; B96.89 Other specified bacterial agents as the cause of diseases classified elsewhere; E03.9 Hypothyroidism, unspecified; G25.3 Myoclonus; L27.1 Localized skin eruption due to drugs and medicaments taken internally; E11.22 Type 2 diabetes mellitus with diabetic chronic kidney disease; H54.7 Unspecified visual loss; M10.9 Gout, unspecified; F32.9 Major depressive disorder, single episode, unspecified; I25.2 Old myocardial infarction; Z95.5 Presence of coronary angioplasty implant and graft; Z79.899 Other long term (current) drug therapy; Z92.3 Personal history of irradiation; Z85.841 Personal history of malignant neoplasm of brain; Z90.49 Acquired absence of other specified parts of digestive tract; Z79.82 Long term (current) use of aspirin; Z88.6 Allergy status to analgesic agent; Z88.0 Allergy status to penicillin; Z88.8 Allergy status to other drugs, medicaments and biological substances; Z98.890 Other specified postprocedural states
CPT/HCPCS: 36415; 70450; 71045; 80048; 81001; 82803; 82962; 83605; 84439; 84443; 84484; 85025; 87040; 87086; 87088; 87186; 93005; 93010; 99285; G0378; G8978-GP; G8979-GP; J0696; J3490; J7030; J7040; S0028

== ENCOUNTER 2018-01-08 11:50 | Emergency (ER) | payer MEDICARE, OTHER ==
[2018-01-08 13:03] LABS: HEMATOCRIT 40.7 % (36.0-47.0); HEMOGLOBIN 13.5 g/dL (12.0-15.5); MEAN CORPUSCULAR HEMOGLOBIN 32.6 pg (27.0-33.4); MEAN CORPUSCULAR VOLUME 99 fl (80-97); PLATELET COUNT 474 10^3/uL (150-450); RED BLOOD COUNT 4.13 10^6/uL (3.72-5.28); RED CELL DISTRIBUTION WIDTH 15.2 % (11.5-14.0); WHITE BLOOD COUNT 13.7 10^3/uL (4.0-10.5)
--- NOTE | 2018-01-08 13:04 | ER Document Report ---
ED Dizziness/Weakness - General Mode of Arrival: Ambulatory Information source: Patient TRAVEL OUTSIDE OF THE [place] IN LAST 30 DAYS: No <HUNTER KEANE - Last Filed: 01/08/18 13:12> <KAITLYNN VAZQUEZ - Last Filed: 01/08/18 15:10> - General Chief Complaint: Syncope Stated Complaint: BLOOD PRESSURE PROBLEM Time Seen by Provider: 01/08/18 12:23 Notes: 82-year-old female who presents to the emergency department today with complaints of a syncopal episode. Patient states that she was eating cereal this morning when she became sick to her stomach and the next thing she remembers is waking up in the emergency department. 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 Patient denies any nausea/vomiting. (HUNTER KEANE) The patient's blood pressure was low when picked up by EMS. She was given Zofran and normal saline IV in route. Shortly after arriving in the emergency room, she is completely alert and oriented. (KAITLYNN VAZQUEZ) - Related Data Allergies/Adverse Reactions: codeine [Codeine] Allergy (Severe, Verified 09/03/15 12:20) rash simvastatin [From Zocor] Allergy (Severe, Verified 09/03/15 12:20) severe rash tramadol Allergy (Severe, Verified 12/28/17 14:22) Skin Redness amoxicillin [Amoxicillin] Adverse Reaction (Severe, Verified 09/03/15 12:20) Diarrhea Past Medical History - General Information source: Patient - Social History Smoking Status: Never Smoker Cigarette use (# per day): No Frequency of alcohol use: None Drug Abuse: None Lives with: Family Family History: Reviewed & Not Pertinent - Past Medical History Cardiac Medical History: Reports: Hx Heart Attack - 05/2015, Hx Hypercholesterolemia, Hx Hypertension Endocrine Medical History: Reports: Hx Hypothyroidism Renal/ Medical History: Reports: Hx Renal Insufficiency Malignancy Medical History: Reports: 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, resulting blindness Musculoskeletal Medical History: Comment Only Hx Arthritis - gout, Reports Hx Gout Psychiatric Medical History: Reports: Hx Depression Past Surgical History: Reports: Hx Appendectomy, Hx Cardiac Catheterization - stents x 2, Hx Cardiac Surgery - 2 STENTS, Hx Cholecystectomy, Hx Orthopedic Surgery - carpal tunnel, Hx Thyroid Surgery - Immunizations Hx Diphtheria, Pertussis, Tetanus Vaccination: Yes Hx Pneumococcal Vaccination: 02/25/14 <HUNTER KEANE - Last Filed: 01/08/18 13:12> Review of Systems - Review of Systems Constitutional: No symptoms reported EENT: No symptoms reported Cardiovascular: See HPI, Syncope Respiratory: No symptoms reported Gastrointestinal: denies: Vomiting Genitourinary: No symptoms reported Female Genitourinary: No symptoms reported Musculoskeletal: No symptoms reported Skin: No symptoms reported Hematologic/Lymphatic: No symptoms reported Neurological/Psychological: No symptoms reported -: Yes All other systems reviewed and negative <HUNTER KEANE - Last Filed: 01/08/18 13:12> Physical Exam <HUNTER KEANE - Last Filed: 01/08/18 13:12> <KAITLYNN VAZQUEZ - Last Filed: 01/08/18 15:10> - Vital signs Vitals: Temp Pulse Resp BP Pulse Ox 97.8 F 62 18 119/45 L 96 01/08/18 12:01 01/08/18 12:01 01/08/18 12:01 01/08/18 12:01 01/08/18 12:01 - Notes Notes: Physical Exam: General: Alert, age appropriate. HEENT: Normocephalic. Atraumatic. PERRL. Extraocular movements intact. Oropharynx clear. Bilateral ptosis, R>L, left is surgically improved. Left periorbital erythema consistent with recent surgery. Visual impairment at baseline bilaterally, states she can only see outlines and shapes and that is normal for her. No carotid bruits. Neck: Supple. Non-tender. Respiratory: No respiratory distress. Clear and equal breath sounds bilaterally. Cardiovascular: 2/6 systolic murmur, regular rhythm. Abdominal: Normal Inspection. Non-tender. No distension. Normal Bowel Sounds. Back: Non-tender. No deformity or step off. Extremities: Moves all four extremities. Upper extremities: Normal inspection. Normal ROM. Lower extremities: Normal inspection. No edema. Normal ROM. Neurological: Normal cognition. AAOx4. Normal speech. Psychological: Normal affect. Normal Mood. Skin: Warm. Dry. Normal color. (HUNTER KEANE) Course - Laboratory Result Diagrams: 01/08/18 11:28 01/08/18 11:28 <HUNTER KEANE - Last Filed: 01/08/18 13:12> - Laboratory Result Diagrams: 01/08/18 11:28 01/08/18 11:28 - Diagnostic Test Radiology reviewed: Image reviewed, Reports reviewed - CT scan of the head shows chronic microvascular ischemic changes with no acute findings. - EKG Interpretation by Me EKG shows normal: Sinus rhythm, Armstrong, Intervals, QRS Complexes. abnormal: ST-T Waves - Old lateral infarct Rate: Normal - 65 Rhythm: NSR Armstrong/QRS: RBBB When compared to previous EKG there are: No significant change - Consults Dr. Koch Time consulted: 15:00 Consulted provider: follow-up in office <KAITLYNN VAZQUEZ - Last Filed: 01/08/18 15:10> - Re-evaluation Re-evalutation: 01/08/18 15:07 At this time the patient continues to be alert and oriented and is eating chips. She states that she thinks she drinks plenty of water, but is agreeable to drinking more fluids than what she has been. (KAITLYNN VAZQUEZ) - Vital Signs Vital signs: Temp Pulse Resp BP Pulse Ox 97.8 F 62 14 133/57 H 97 01/08/18 12:01 01/08/18 12:01 01/08/18 14:00 01/08/18 13:01 01/08/18 14:00 - Laboratory Laboratory results interpreted by me: 01/08/18 01/08/18 11:28 11:28 WBC 13.7 H MCV 99 H RDW 15.2 H Plt Count 474 H Metamyelocytes % 1 H Abs Lymphs (Manual) 5.1 H Potassium 3.4 L Chloride 109 H Creatinine 1.43 H Est GFR ( Amer) 43 L Est GFR (Non-Af Amer) 35 L Glucose 166 H AST 54 H Creatine Kinase 28 L Total Protein 6.0 L Albumin 3.2 L Discharge <HUNTER KEANE - Last Filed: 01/08/18 13:12> <KAITLYNN VAZQUEZ - Last Filed: 01/08/18 15:10> - Discharge Clinical Impression: Dehydration Episode of syncope Qualifiers: Syncope type: unspecified Qualified Code(s): R55 - Syncope and collapse Condition: Stable Disposition: HOME, SELF-CARE Additional Instructions: No clear explanation for your prolonged episode of unresponsiveness was identified. It does appear that a likely cause was becoming dehydrated leading to a drop in your blood pressure. Be sure to drink plenty of fluids when you are at home. Follow-up with Dr. Koch in the office tomorrow for recheck. RETURN TO THE EMERGENCY ROOM IF ANY NEW OR WORSENING SYMPTOMS. Referrals: JANE KOCH MD [Primary Care Provider] - Follow up tomorrow Scribe Attestation: 01/08/18 15:09 I personally performed the services described in the documentation, reviewed and edited the documentation which was dictated to the scribe in my presence, and it accurately records my words and actions. (KAITLYNN VAZQUEZ) Scribe Documentation - Scribe Written by Josefina:: Josefina Padgett, 01/08/2018 1404 acting as scribe for :: Liborio <HUNTER KEANE - Last Filed: 01/08/18 13:12>
[2018-01-08 13:15] LABS: ALANINE AMINOTRANSFERASE 44 U/L (9-52); ALBUMIN 3.2 g/dL (3.5-5.0); ALKALINE PHOSPHATASE 51 U/L (38-126); ANION GAP 12 (5-19); ASPARTATE AMINO TRANSFERASE 54 U/L (14-36); BILIRUBIN,DIRECT 0.3 mg/dL (0.0-0.4); BILIRUBIN,TOTAL 0.5 mg/dL (0.2-1.3); BLOOD UREA NITROGEN 19 mg/dL (7-20); CARBON DIOXIDE 22 mmol/L (22-30); CHLORIDE 109 mmol/L (98-107); CREATINE KINASE 28 U/L (30-135); GLUCOSE 166 mg/dL (75-110); POTASSIUM 3.4 mmol/L (3.6-5.0); SODIUM 143.4 mmol/L (137-145)
[2018-01-08 13:25] LABS: TROPONIN I < 0.012 ng/mL
[2018-01-08 13:39] LABS: ABSOLUTE LYMPHOCYTES# (MANUAL) 5.1 10^3/uL (0.5-4.7); ABSOLUTE MONOCYTES # (MANUAL) 0.4 10^3/uL (0.1-1.4); ABSOLUTE NEUTROPHILS# (MANUAL) 8.1 10^3/uL (1.7-8.2); BASOPHILS % (MANUAL) 0 % (0-2); EOSINOPHILS % (MANUAL) 1 % (0-6); LYMPHOCYTES % (MANUAL) 37 % (13-45); METAMYELOCYTES % (MANUAL) 1 % (0); MONOCYTES % (MANUAL) 3 % (3-13); SEGMENTED NEUTROPHILS % (MAN) 58 % (42-78); TOTAL CELLS COUNTED 100
[2018-01-08 13:41] LABS: OVALOCYTES 1+; PLATELET CLUMPS PRESENT; POIKILOCYTOSIS 2+
[2018-01-08 13:42] LABS: ACANTHOCYTES SLIGHT; ANISOCYTOSIS SLIGHT; BURR CELLS SLIGHT; POLYCHROMASIA SLIGHT; SCHISTOCYTES SLIGHT
[2018-01-08 13:47] LABS: APPEARANCE,URINE SLIGHTLY-CLOUDY; BILIRUBIN,URINE NEGATIVE (NEGATIVE); GLUCOSE, URINE NEGATIVE (NEGATIVE); KETONES,URINE NEGATIVE (NEGATIVE); LEUKOCYTE ESTERASE,URINE NEGATIVE (NEGATIVE); NITRITE,URINE NEGATIVE (NEGATIVE); PROTEIN,URINE NEGATIVE (NEGATIVE); URINE SPECIFIC GRAVITY 1.013; UROBILINOGEN,URINE NEGATIVE mg/dL (<2.0)
[2018-01-08 13:48] LABS: COLOR,URINE YELLOW
--- NOTE | 2018-01-08 14:03 | EKG REPORT ---
SEVERITY:- ABNORMAL ECG - SINUS RHYTHM RIGHT BUNDLE BRANCH BLOCK LATERAL INFARCT, OLD : Confirmed by: Steffen Saenz MD 08-Jan-2018 14:02:20
--- NOTE | 2018-01-08 14:27 | RADIOLOGY REPORT (SQ) ---
EXAM DESCRIPTION: CT HEAD WITHOUT COMPLETED DATE/TIME: 01/08/2018 2:14 pm REASON FOR STUDY: Prolonged syncopal episode COMPARISON: None. TECHNIQUE: Axial images acquired through the brain without intravenous contrast. Images reviewed wi th bone, brain and subdural windows. Additional sagittal and coronal reconstructions were generated. Images stored on PACS. All CT scanners at this facility use dose modulation, iterative reconstruction, and/or weight based d osing when appropriate to reduce radiation dose to as low as reasonably achievable (ALARA). [facility]: Dose Right [facility]: CareDose [facility]: Dose Right [facility]: Teradose 4D [facility]: Kereos RADIATION DOSE: CT Rad equipment meets quality standard of care and radiation dose reduction techniq ues were employed. CTDIvol: 53.2 mGy. DLP: 1017 mGy-cm.mGy. LIMITATIONS: None. FINDINGS: VENTRICLES: Prominent. CEREBRUM: No masses. No hemorrhage. No midline shift. Areas of low density in the white matter mos t likely due to chronic micro-vascular ischemic change. No evidence for acute infarction. CEREBELLUM: No masses. No hemorrhage. No alteration of density. No evidence for acute infarction. EXTRAAXIAL SPACES: Age-related involutional change. No fluid collections. No masses. ORBITS AND GLOBE: No intra- or extraconal masses. Normal contour of globe without masses. CALVARIUM: No fracture. SOFT TISSUES: No mass or hematoma. OTHER: No other significant finding. IMPRESSION: CHRONIC CHANGES OF ATROPHY AND MICROVASCULAR ISCHEMIA. NO ACUTE PROCESS. EVIDENCE OF ACUTE STROKE: NO. TECHNICAL DOCUMENTATION: JOB ID: [id number] Quality ID # [id number]: Final reports with documentation of one or more dose reduction techniques (e.g., Au tomated exposure control, adjustment of the mA and/or kV according to patient size, use of iterative reconstruction technique) 2010 [employer]- All Rights Reserved Reading location - IP/workstation name: [id number]
[2018-01-08 15:38] VITALS: BP 135/49
== END 2018-01-08 15:43 | disposition home or self-care (01) ==
LOC: ER 11:50
DX: R55 Syncope and collapse (principal); E86.0 Dehydration; I45.10 Unspecified right bundle-branch block; I10 Essential (primary) hypertension; I25.2 Old myocardial infarction; E89.3 Postprocedural hypopituitarism; Z85.841 Personal history of malignant neoplasm of brain; Z92.3 Personal history of irradiation; Z95.5 Presence of coronary angioplasty implant and graft; Z88.5 Allergy status to narcotic agent; Z88.8 Allergy status to other drugs, medicaments and biological substances
CPT/HCPCS: 36415; 51701; 70450; 80053; 81001; 82550; 82553; 83605; 84484; 85025; 93005; 93010; 99285

== ENCOUNTER → 2018-06-19 | Outpatient (CLI) | payer MEDICARE, OTHER ==
[2018-06-19 08:36] LABS: HEMATOCRIT 43.5 % (36.0-47.0); HEMOGLOBIN 14.6 g/dL (12.0-15.5); MEAN CORPUSCULAR HEMOGLOBIN 32.9 pg (27.0-33.4); MEAN CORPUSCULAR HGB CONC 33.5 g/dL (32.0-36.0); MEAN CORPUSCULAR VOLUME 99 fl (80-97); PLATELET COUNT 227 10^3/uL (150-450); RED BLOOD COUNT 4.42 10^6/uL (3.72-5.28); RED CELL DISTRIBUTION WIDTH 14.5 % (11.5-14.0); WHITE BLOOD COUNT 11.5 10^3/uL (4.0-10.5)
[2018-06-19 08:53] LABS: ANION GAP 8 (5-19); BLOOD UREA NITROGEN 20 mg/dL (7-20); CALCIUM 9.6 mg/dL (8.4-10.2); CARBON DIOXIDE 28 mmol/L (22-30); CHLORIDE 110 mmol/L (98-107); GLUCOSE 92 mg/dL (75-110); PHOSPHORUS 3.3 mg/dL (2.5-4.5); POTASSIUM 3.8 mmol/L (3.6-5.0)
[2018-06-19 15:01] LABS: APPEARANCE,URINE SLIGHTLY-CLOUDY; BILIRUBIN,URINE NEGATIVE (NEGATIVE); COLOR,URINE YELLOW; GLUCOSE, URINE NEGATIVE (NEGATIVE); KETONES,URINE NEGATIVE (NEGATIVE); LEUKOCYTE ESTERASE,URINE MODERATE (NEGATIVE); NITRITE,URINE NEGATIVE (NEGATIVE); PROTEIN,URINE NEGATIVE (NEGATIVE); URINE SPECIFIC GRAVITY 1.013; UROBILINOGEN,URINE NEGATIVE mg/dL (<2.0)
== END ==
LOC: OD 08:00
PROVIDERS: ATTEND Physician Assistant Medical
DX: N18.3 Chronic kidney disease, stage 3 (moderate) (principal); E87.1 Hypo-osmolality and hyponatremia
CPT/HCPCS: 36415; 80048; 81001; 83970; 84100; 85027

== ENCOUNTER → 2018-12-04 | Outpatient (CLI) | payer MEDICARE, OTHER ==
[2018-12-04 11:37] LABS: HEMATOCRIT 41.8 % (36.0-47.0); HEMOGLOBIN 13.9 g/dL (12.0-15.5); MEAN CORPUSCULAR HEMOGLOBIN 34.1 pg (27.0-33.4); MEAN CORPUSCULAR HGB CONC 33.2 g/dL (32.0-36.0); MEAN CORPUSCULAR VOLUME 103 fl (80-97); PLATELET COUNT 204 10^3/uL (150-450); RED BLOOD COUNT 4.07 10^6/uL (3.72-5.28); RED CELL DISTRIBUTION WIDTH 14.5 % (11.5-14.0); WHITE BLOOD COUNT 12.7 10^3/uL (4.0-10.5)
[2018-12-04 11:57] LABS: ANION GAP 5 (5-19); BLOOD UREA NITROGEN 30 mg/dL (7-20); CALCIUM 9.6 mg/dL (8.4-10.2); CARBON DIOXIDE 27 mmol/L (22-30); CHLORIDE 110 mmol/L (98-107); GLUCOSE 134 mg/dL (75-110); POTASSIUM 4.1 mmol/L (3.6-5.0); SODIUM 141.7 mmol/L (137-145)
== END ==
LOC: OD 11:11
PROVIDERS: ATTEND Internal Medicine Nephrology
DX: I12.9 Hypertensive chronic kidney disease with stage 1 through stage 4 chronic kidney disease, or unspecified chronic kidney disease (principal); N18.3 Chronic kidney disease, stage 3 (moderate); E87.1 Hypo-osmolality and hyponatremia
CPT/HCPCS: 36415; 80048; 85027